=== PATIENT | male | born 1970 | race Two or more races ===

== ENCOUNTER 2025-03-09 12:31 | Emergency (ER) | payer MEDICARE, MEDICAID, SELFPAY ==
--- OUTSIDE RECORDS SUMMARY | 2025-03-02 06:16 | XMS_ITS | Encounter Summary ---
Author Organization [facility] Address [address] [place] [address] Care Team Providers Care Hot Mill Worker Name Role Phone Krysten Martins MD Primary Care Provider [phone] Reason for Visit * Reason Comments Psychiatric Evaluation Hyperglycemia Encounter Details Date Type Department Care Team (Late st Contact Info) Description 03/02/2025 6:16 AM EDT - 03/05/2025 3:10 PM EDT Emergency [facility] Emergency [address] [place] [id number] Jeff Dior MD [address] [place] [id number] Demetrius Cochran MD [address] [place] [id number] Pilar Pretty MD [address] [place] [id number] Raj Parham MD [address] [place] [id number] Ada Escoto DO [address] [place] [address] Lulu Perez MD [address] [place] [id number] Discharge Disposition: Psychiatric Hospital Social History Tobacco Use Types Packs/Day Years Used Date Smoking Tobacco: Every Day Smokeless Tobacco: Never Alcohol Use Standard Drinks/Week Comments Yes 0 (1 standard drink = 0.6 oz pur e alcohol) 10+ beers per day Food Risk Answer Date Recorded Within the past 12 months we worried whether our food would run out before we got money to buy more. Not asked 01/17/2025 Within the past 12 months th e food we bought just didn't last and we didn't have money to get more. Not asked 01/17/2025 Interpersonal Safety Answer Date Record ed Physical Abuse 01/15/2025 Verbal Abuse 01/15/2025 Sex and Gender Information Value Date Recorded Sex Assigned at Not on file Legal Sex Male 11:07 AM EDT Gender Identity Not on file Sexual Orientation Not on file documented as of this encounter Last Filed Vital Signs Vital Sign Reading Time Taken Comments Blood Pressure 108/65 03/05/2025 12:11 PM EDT Pulse 60 03/05/2025 12:11 PM EDT Temperature 36.5 C (97.7 F) 03/04/2025 9:45 PM EDT Respiratory Rate 18 03/05/2025 12:11 PM EDT Oxygen Saturation 100% 03/05/2025 12:11 PM EDT Inhaled Oxygen Concentration - - Weight 59 kg (130 lb) 03/02/2025 6:55 AM EDT Height 170.2 cm (5' 7 ) 03/02/2025 6:55 AM EDT Body Mass Index 20.36 03/02/2025 6:55 AM EDT documented in this encounter Functional Status * Are you deaf or do you have serious difficulty hearing? Answer Date of Assessment Author No 01/15/2025 5:56 AM EDT Lara Mendoza RN * Are you blind or do you have serious difficulty seeing, even when wearing glasses? Answer Date of Assessment Author No 01/15/2025 5:56 AM EDT Lara Mendoza RN * Do you have serious difficulty walking or climbing stairs? Answer Date of Assessment Author No 01/15/2025 5:56 AM EDT Lara Mendoza RN * Because of a physical, mental, or emotional condition, do you have serious difficulty doing errandsalone such as visiting the doctor? Answer Date of Assessment Author No 01/15/2025 5:56 AM EDT Lara Mendoza RN documented as of this encounter Mental Status * Because of a physical, mental, or emotional condition, do you have serious difficulty concentrating, remembering, or making decisions? (5 years old or older) Answer Entry Date Author No 01/15/2025 5:56 AM EDT Lara Mendoza RN documented in this encounter Medications at Time of Discharge albuterol HFA (ProAir HFA) 90 mcg/actuation inhaler Inhale 2 puffs by mouth every 4 (four) hours if needed for wheezing or shortness of breath. 01/16/2025 6 atorvastatin (LIPITOR) 40 mg tablet Take 1 tablet (40 mg total) by mouth 1 (one) time each day. Hold This med for next 7 days 90 tablet 2 01/27/2025 folic acid (FOLVITE) 1 mg tablet Take 1 tablet (1 mg total) by mouth 1 (one) time each day. 30 each 01/27/2025 6 magnesium oxide (MAG-OX) 400 mg (241.3 elemental magnesium) tablet Take 1 tablet (400 mg total) by mouth 1 (one) time each day. 10 tablet 01/28/2025 melatonin 3 mg tablet Take 3 tablets (9 mg total) by mouth at bedtime as needed for sleep. 90 tablet 01/27/2025 pen needle, diabetic 29 gauge x 1/2 needle Use to inject 1-4 times daily as directed. 100 each 01/27/2025 6 traZODone (DESYREL) 50 mg tablet Take 3 tablets (150 mg total) by mouth at bedtime as needed for sleep for up to 30 doses. 30 tablet 01/27/2025 documented as of this encounter Discharge Disposition Disposition Code Departure Means Destination [facility] documented in this encounter Progress Notes * Lulu Perez MD - 03/05/2025 8:22 AM EDT Maurilio Talley This patient's care was signed out to me by the offgoing provider. Please see her/his note for further details regarding initial presentation, history of present illness, physical exam, and medical decision making. At time of signout, the following was pending: inpatient psychiatric placement No acute needs during my shift. Patient's care was handed over to the oncoming provider. ED Course as of 03/05/25 0822 [place] Mar 02, 2025 0636 POCT Glucose, blood(!!) DKA workup as needed [LB] 1318 Patient was evaluated by the crisis team and deemed to be inpatient level of care. [AA] Mon Mar 03, 2025 0712 Patient received in signout pending bed search. [KD] 1808 Patient's care signed out to physician colleague pending bed search. [KD] ED Course User Index [AA] Jeff Dior MD [KD] Raj Parham MD [LB] JACQUI Coronado No orders to display Labs Reviewed COMPREHENSIVE METABOLIC PANEL - Abnormal Result Value Sodium 125 (*) Potassium 3.9 Chloride 86 (*) CO2 30 Anion Gap 9 Glucose 635 (*) BUN 12 Creatinine 1.11 eGFR 78 BUN/Creatinine Ratio 10.8 Calcium 9.5 AST (SGOT) 221 (*) ALT (SGPT) 291 (*) Alkaline Phosphatase 121 Total Protein 8.6 (*) Albumin 4.1 Total Bilirubin 1.3 MAGNESIUM - Abnormal Magnesium 1.8 (*) BETA HYDROXYBUTYRATE - Abnormal Beta-Hydroxybutyrate 8.3 (*) PHOSPHORUS - Abnormal Phosphorus 4.6 (*) VENOUS BLOOD GAS - Abnormal pH, Ryan 7.39 pCO2, Ryan 53 (*) pO2, Ryan 42 (*) HCO3, Venous 28.6 (*) O2 Sat, Ryna 80.3 Base Excess, Ryan 5.7 (*) VENOUS BLOOD GAS - Abnormal pH, Ryan 7.40 pCO2, Ryan 53 (*) pO2, Ryan 47 (*) HCO3, Venous 29.3 (*) O2 Sat, Ryan 80.5 Base Excess, Ryan 6.5 (*) VENOUS BLOOD GAS CO-OXIMETRY - Abnormal Carboxyhemoglobin 11.7 (*) Methemoglobin 0.0 (*) Oxyhemoglobin 70.9 (*) O2 Sat, Ryan 80.3 Total Hemoglobin Venous 13.7 DRUG ABUSE SCREEN 8A PANEL, URINE - Abnormal Amphetamine Screen, Ur Negative Barbiturate Screen, Ur Negative Benzodiazepine Screen, Ur Negative Cocaine Screen, Ur Positive (*) Opiate Screen, Ur Negative Cannabinoid (THC) Screen, Ur Negative Oxycodone Screen, Ur Negative Fentanyl, Ur Negative Narrative: Assay cutoffs: Amphetamines 1000 ng/mL Barbiturates 200 ng/mL Benzodiazepines 200 ng/mL Cocaine 300 ng/mL Fentanyl 1 ng/mL Opiates 300 ng/mL Oxycodone 100 ng/mL THC 50 ng/mL Semi-quantitative assay for screening purposes only. Unconfirmed screening result should not be used for non-medical purposes. *ALTERNATE METHOD CONFIRMATION DONE UPON REQUEST ONLY* ACETAMINOPHEN LEVEL - Abnormal Acetaminophen Level <2.0 (*) SALICYLATE LEVEL - Abnormal Salicylate Level <1.7 (*) URINALYSIS WITH REFLEX MICROSCOPIC AND CULTURE - Abnormal Specific [place] Urine 1.033 (*) pH, Urine 7.0 Leukocytes, Urine Negative Nitrite, Urine Negative Protein, Urine Negative Glucose, Urine >=1000 (*) Ketones, Urine Trace (*) Urobilinogen, Urine 2.0 (*) Bilirubin, Urine Negative Blood, Urine Negative POCT GLUCOSE, BLOOD - Abnormal Glucose POCT >600 (*) POCT Comment RN Notified POCT Comment 1 MD Notified POCT GLUCOSE, BLOOD - Abnormal Glucose POCT 398 (*) POCT GLUCOSE, BLOOD - Abnormal Glucose POCT 491 (*) POCT GLUCOSE, BLOOD - Abnormal Glucose POCT 260 (*) POCT GLUCOSE, BLOOD - Abnormal Glucose POCT 277 (*) POCT GLUCOSE, BLOOD - Abnormal Glucose POCT 316 (*) POCT GLUCOSE, BLOOD - Abnormal Glucose POCT 357 (*) POCT GLUCOSE, BLOOD - Abnormal Glucose POCT 378 (*) POCT GLUCOSE, BLOOD - Abnormal Glucose POCT 124 (*) POCT GLUCOSE, BLOOD - Abnormal Glucose POCT 391 (*) POCT GLUCOSE, BLOOD - Abnormal Glucose POCT 148 (*) POCT GLUCOSE, BLOOD - Abnormal Glucose POCT 340 (*) POCT GLUCOSE, BLOOD - Abnormal Glucose POCT 334 (*) LACTATE, WITH REFLEX - Normal LACTIC ACID 1.2 BUPRENORPHINE SCREEN, URINE - Normal Buprenorphine Screen Urine Negative Narrative: Assay cutoff 5 ng/mL Semi-quantitative assay for screening purposes only. Unconfirmed screening result should not be used for non-medical purposes. *ALTERNATE METHOD CONFIRMATION DONE UPON REQUEST ONLY* PHENCYCLIDINE, URINE - Normal PCP Scrn, Ur Negative METHADONE SCREEN, URINE - Normal Methadone Screen, Urine Negative ETHANOL - Normal Ethanol Level <3 CBC AND DIFFERENTIAL Narrative: The following orders were created for panel order CBC and differential. Procedure Abnormality Status --------- ------ CBC auto differential[[id number]] Final result Please view results for these tests on the individual orders. CBC WITH AUTO DIFFERENTIAL WBC 6.2 RBC 4.60 Hemoglobin 14.6 Hematocrit 42.7 MCV 93.6 MCH 32.0 MCHC 34.2 RDW 11.9 Platelets 200 MPV 10.4 NRBC 0.0 NRBC Absolute 0.00 Neutrophils Relative 46.8 Lymphocytes Relative 44.4 Monocytes Relative 7.3 Eosinophils Relative 0.5 Basophils Relative 0.8 Immature Granulocytes Relative 0.2 Neutrophils Absolute 2.90 Lymphocytes Absolute 2.75 Monocytes Absolute 0.45 Eosinophils Absolute 0.03 Basophils Absolute 0.05 Immature Granulocytes Absolute 0.01 URINALYSIS WITH REFLEX MICROSCOPIC AND CULTURE Narrative: The following orders were created for panel order Urinalysis with reflex microscopic and culture. Procedure Abnormality Status --------- ------ Urinalysis with reflex ...[[id number]] Abnormal Final result Booker urine culture tube[[id number]] Final result Please view results for these tests on the individual orders. MAGNESIUM Clinical Impression(s): Final diagnoses: None Data Unavailable Previous Medications ALBUTEROL HFA (PROAIR HFA) 90 MCG/ACTUATION INHALER Inhale 2 puffs by mouth every 4 (four) hours ifneeded for wheezing or shortness of breath. ATORVASTATIN (LIPITOR) 40 MG TABLET Take 1 tablet (40 mg total) by mouth 1 (one) time each day. Hold This med for next 7 days FOLIC ACID (FOLVITE) 1 MG TABLET Take 1 tablet (1 mg total) by mouth 1 (one) time each day. INSULIN GLARGINE (LANTUS) 100 UNIT/ML INJECTION Inject 40 Units under the skin 1 (one) time each day in the morning AND 30 Units at bedtime. MAGNESIUM OXIDE (MAG-OX) 400 MG (241.3 ELEMENTAL MAGNESIUM) TABLET Take 1 tablet (400 mg total) by mouth 1 (one) time each day. MELATONIN 3 MG TABLET Take 3 tablets (9 mg total) by mouth at bedtime as needed for sleep. PEN NEEDLE, DIABETIC 29 GAUGE X 1/2 NEEDLE Use to inject 1-4 times daily as directed. TRAZODONE (DESYREL) 50 MG TABLET Take 3 tablets (150 mg total) by mouth at bedtime as needed for sleep for up to 30 doses. ED Medication Administration from 03/02/2025 0612 to 03/05/2025 0822 Date/Time Order Dose Route Action Action by 03/02/2025 0800 EDT sodium chloride 0.9 % bolus 1,000 mL 1,000 mL intravenous New Bag Cinthia, C 03/02/2025 0830 EDT sodium chloride 0.9 % bolus 1,000 mL 0 mL intravenous Stopped Cinthia, C 03/02/2025 1004 EDT insulin regular (HumuLIN R) injection 10 Units 10 Units subcutaneous Given Cinthia, C 03/02/2025 1004 EDT sodium chloride 0.9 % bolus 1,000 mL 1,000 mL intravenous New Bag Cinthia, C 03/02/2025 1131 EDT sodium chloride 0.9 % bolus 1,000 mL 0 mL intravenous Stopped [place], S 03/02/2025 1004 EDT magnesium sulfate 2 gram/50 mL (4 %) IVPB 2 g 2 g intravenous New Bag Cinthia,C 03/02/2025 1144 EDT magnesium sulfate 2 gram/50 mL (4 %) IVPB 2 g 0 g intravenous Stopped [place], S 03/02/2025 2103 EDT ARIPiprazole (ABILIFY) tablet 7.5 mg 7.5 mg oral Given Arvind, L 03/03/2025 2042 EDT ARIPiprazole (ABILIFY) tablet 7.5 mg 7.5 mg oral Given Arvind, L 03/04/2025 2126 EDT ARIPiprazole (ABILIFY) tablet 7.5 mg 7.5 mg oral Given Cournoyer, S 03/02/2025 1715 EDT atorvastatin (LIPITOR) tablet 40 mg 40 mg oral Given Darell, K 03/03/2025 0911 EDT atorvastatin (LIPITOR) tablet 40 mg 40 mg oral Given Asad Sobral, H 03/04/2025 0854 EDT atorvastatin (LIPITOR) tablet 40 mg 40 mg oral Given Saykin, S 03/02/2025 1715 EDT thiamine (VITAMIN B-1) tablet 100 mg 100 mg oral Given Darell, K 03/03/2025 0911 EDT thiamine (VITAMIN B-1) tablet 100 mg 100 mg oral Given Asad Sobral, H 03/04/2025 0854 EDT thiamine (VITAMIN B-1) tablet 100 mg 100 mg oral Given Saykin, S 03/03/20252049 EDT traZODone (DESYREL) tablet 150 mg 150 mg oral Given Arvind, L 03/04/20252149 EDT traZODone (DESYREL) tablet 150 mg 150 mg oral Given Cournoyer, S 03/02/20252113 EDT insulin glargine (LANTUS) injection 40 Units 40 Units subcutaneous Given Arvind, L 03/03/20252041 EDT insulin glargine (LANTUS) injection 40 Units 40 Units subcutaneous Given Arvind, L 03/04/20252136 EDT insulin glargine (LANTUS) injection 40 Units 40 Units subcutaneous Given Cournoyer, S 03/02/2025 1716 EDT insulin lispro injection 2-12 Units 6 Units subcutaneous Given Darell, K 03/03/2025 0911 EDT insulin lispro injection 2-12 Units 10 Units subcutaneous Given Asad Sobral, H 03/03/2025 1316 EDT insulin lispro injection 2-12 Units 10 Units subcutaneous Given Asad Sobral, H 03/03/2025 1716 EDT insulin lispro injection 2-12 Units -- subcutaneous Not Given Arvind, L 03/04/2025 0854 EDT insulin lispro injection 2-12 Units 10 Units subcutaneous Given Saykin, S 03/04/2025 1212 EDT insulin lispro injection 2-12 Units -- subcutaneous Not Given Saykin, S 03/04/2025 1759 EDT insulin lispro injection 2-12 Units 8 Units subcutaneous Given Saykin, S * Milli Olivarez NP - 03/03/2025 2:06 PM EDT Psychiatry Initial Intake Maurilio Talley,is a 54-year-old male with a history of bipolar disorder, alcohol use disorder, cirrhosis, type 2 diabetes presents to the ED with SI. Patient states that he lost significant amount of money and would like to kill himself. He had plans of slashing his wrist. He did not want to give any further information. Denies chest pain or shortness of breath. On arrival to ED Maurilio reported I am not good, my mind is confused . He stated I am suicidal because no one loves me . He stated I was going to cut my wrist with a knife, like I have done before . He stated sometimes I feel like hurting random people and just punching them in the face . He stated the voices tell me to kill myself . He stated and this is how I am feeling right now . Subjective 03/03/2025 Same thing, I am hearing the voices telling me to kill myself, to hit people. I am not sleeping HPI: Mr Talley reports having thoughts of harming himself and others Upon discharge from [facility] a few weeksago patient had reported a decrease in AH. Patient states that he went to the pharmacy to get the medication it was not ready so I said to just keep it never mind . Seen by CL team January 2025 Record Review: moderate Duration: 30 minutes Current Medications: Scheduled Meds: ARIPiprazole, 7.5 mg, oral, Nightly atorvastatin, 40 mg, oral, Daily insulin glargine, 40 Units, subcutaneous, Nightly insulin lispro, 2-12 Units, subcutaneous, TID AC thiamine, 100 mg, oral, Daily Continuous Infusions: PRN Meds: PRN medications: dextrose 50%, dextrose 50%, dextrose, dextrose, glucagon injection, melatonin, traZODone Stressors: unstable housing, medical co morbidities Past Psychiatric History: Outpatient Mental Health Treatment: None reported Previous or Current Psychological Diagnosis: Bipolar D/O, Alcohol use and Cocaine use Prior Psychiatric Hospitalizations/Residential Treatment Facilities: Maurilio is unknown to [facility]. He reported a history of 3 suicide attempts by cutting and shooting himself in the foot. He stated he was medically admitted and then transferred to a psychiatric hospital in [place]. Other Comments Regarding Mental Health Treatment History: None reported Mental Health Concerns in Family: None reported Substance Abuse History: Recreational drugs: cocaine 2-3 x a week Use of alcohol: daily- amount varies Use of caffeine: denies use Tobacco use: no Legal consequences of chemical use: yes Patient feels he ought to cut down on drinking and/or drug use: yes Patient has been annoyed by others criticizing his drinking or drug use: yes Psychiatric Review Of Systems: Sleep: yes Need the trazodone Appetite changes: yes Weight changes: no Energy: yes Interest/pleasure/anhedonia: yes Somatic symptoms: yes Anxiety/panic: no Guilty/hopeless: yes Self-injurious behavior/risky behavior: demies Any drugs: yes Alcohol: yes Mental Status Exam: General Observations Appearance and Build: disheveled and unkempt Demeanor: Mistrustful Eye Contact: Avoidant Activity: Average Speech: soft Behavior: withdrawn Mood: depressed Affect: flat Thought Process: poor concentration Thought Content: Delusions: none reported Other: none reported Self Abuse: suicidal (assess lethality if present): reports suicidal ideation with plan to overdose Aggressive: none reported Cognition: Impairment of: orientation and attention/concentration Intelligence Estimate: average highest grade 3rd Sensorium/Orientation: person, place, time/date, and situation Perception: Hallucinations: auditory Other: none reported Insight/Judgment: fair Psychomotor agitation: none Suicidal intentions: yes - Suicidal plan: yes - to overdose Assessment/Plan Diagnosis: Patient Active Problem List Diagnosis Transaminitis Suicidal ideation Elevated LFTs Noncompliance with medication regimen Type 2 diabetes mellitus with hyperglycemia, with long-term current use of insulin ([facility] V24, [facility] V28) Objective: Seclusion/Restraint in last 24 hours: No Blood pressure 108/65, pulse 68, temperature 36.4 ??C (97.6 ??F), temperature source Oral, resp. rate 16, height 1.702 m (67 ), weight 59 kg (130 lb), SpO2 98%. Lab Results: Results for orders placed or performed during the hospital encounter of 03/02/25 POCT Glucose, blood Collection Time: 03/02/25 6:25 AM Result Value Ref Range Glucose POCT >600 (HH) 70 - 100 mg/dL POCT Comment RN Notified POCT Comment 1 MD Notified Comprehensive Metabolic Panel (CMP) Collection Time: 03/02/25 7:08 AM Result Value Ref Range Sodium 125 (L) 133 - 145 mmol/L Potassium 3.9 3.5 - 5.5 mmol/L Chloride 86 (L) 96 - 110 mmol/L CO2 30 21 - 32 mmol/L Anion Gap 9 3 - 11 Glucose 635 (HH) 70 - 100 mg/dL BUN 12 5 - 25 mg/dL Creatinine 1.11 0.70 - 1.30 mg/dL eGFR 78 >=60 mL/min/1.73m2 BUN/Creatinine Ratio 10.8 Calcium 9.5 8.5 - 10.5 mg/dL AST (SGOT) 221 (H) 10 - 42 unit/L ALT (SGPT) 291 (H) 10 - 60 unit/L Alkaline Phosphatase 121 42 - 121 unit/L Total Protein 8.6 (H) 6.0 - 8.0 g/dL Albumin 4.1 3.2 - 5.0 g/dL Total Bilirubin 1.3 0.0 - 1.4 mg/dL Magnesium Collection Time: 03/02/25 7:08 AM Result Value Ref Range Magnesium 1.8 (L) 1.9 - 2.6 mg/dL Beta hydroxybutyrate Collection Time: 03/02/25 7:08 AM Result Value Ref Range Beta-Hydroxybutyrate 8.3 (H) 0.2 - 2.8 mg/dL Phosphorus Collection Time: 03/02/25 7:08 AM Result Value Ref Range Phosphorus 4.6 (H) 2.5 - 4.5 mg/dL Venous blood gas Collection Time: 03/02/25 7:08 AM Result Value Ref Range pH, Ryan 7.39 7.32 - 7.42 pH pCO2, Ryan 53 (H) 41 - 51 mmHg pO2, Ryan 42 (H) 25 - 40 mmHg HCO3, Venous 28.6 (H) 22.0 - 26.0 mmol/L O2 Sat, Ryan 80.3 % Base Excess, Ryan 5.7 (H) -2.0 - 2.0 mmol/L Venous blood gas Collection Time: 03/02/25 7:08 AM Result Value Ref Range pH, Ryan 7.40 7.32 - 7.42 pH pCO2, Ryan 53 (H) 41 - 51 mmHg pO2, Ryan 47 (H) 25 - 40 mmHg HCO3, Venous 29.3 (H) 22.0 - 26.0 mmol/L O2 Sat, Ryan 80.5 % Base Excess, Ryan 6.5 (H) -2.0 - 2.0 mmol/L Lactate, with reflex Collection Time: 03/02/25 7:08 AM Result Value Ref Range LACTIC ACID 1.2 0.4 - 2.0 mmol/L Venous blood gas co-oximetry Collection Time: 03/02/25 7:08 AM Result Value Ref Range Carboxyhemoglobin 11.7 (HH) 0.0 - 3.0 % Methemoglobin 0.0 (L) 0.2 - 0.5 % Oxyhemoglobin 70.9 (H) 40 - 70 % O2 Sat, Ryan 80.3 % Total Hemoglobin Venous 13.7 12.0 - 18.0 g/dL CBC auto differential Collection Time: 03/02/25 7:08 AM Result Value Ref Range WBC 6.2 4.8 - 10.8 K/mcL RBC 4.60 4.50 - 5.50 M/mcL Hemoglobin 14.6 13.5 - 17.5 g/dL Hematocrit 42.7 42.0 - 54.0 % MCV 93.6 79.0 - 98.0 FL MCH 32.0 27.0 - 32.0 pcg MCHC 34.2 32.0 - 37.0 g/dL RDW 11.9 11.0 - 15.0 % Platelets 200 130 - 400 K/mcL MPV 10.4 7.0 - 11.0 FL NRBC 0.0 <1.0 % NRBC Absolute 0.00 <0.10 K/mcL Neutrophils Relative 46.8 % Lymphocytes Relative 44.4 % Monocytes Relative 7.3 % Eosinophils Relative 0.5 % Basophils Relative 0.8 % Immature Granulocytes Relative 0.2 % Neutrophils Absolute 2.90 1.50 - 7.00 K/mcL Lymphocytes Absolute 2.75 1.00 - 5.00 K/mcL Monocytes Absolute 0.45 0.20 - 1.00 K/mcL Eosinophils Absolute 0.03 0.00 - 0.50 K/mcL Basophils Absolute 0.05 0.00 - 0.20 K/mcL Immature Granulocytes Absolute 0.01 0.00 - 0.03 K/mcL Acetaminophen level Collection Time: 03/02/25 7:08 AM Result Value Ref Range Acetaminophen Level <2.0 (L) 10.0 - 30.0 mcg/mL Ethanol Collection Time: 03/02/25 7:08 AM Result Value Ref Range Ethanol Level <3 0 - 10 mg/dL Salicylate level Collection Time: 03/02/25 7:08 AM Result Value Ref Range Salicylate Level <1.7 (L) 2.0 - 29.0 mg/dL Drug abuse screen 8a panel, urine Collection Time: 03/02/25 7:09 AM Result Value Ref Range Amphetamine Screen, Ur Negative Negative Barbiturate Screen, Ur Negative Negative Benzodiazepine Screen, Ur Negative Negative Cocaine Screen, Ur Positive (A) Negative Opiate Screen, Ur Negative Negative Cannabinoid (THC) Screen, Ur Negative Negative Oxycodone Screen, Ur Negative Negative Fentanyl, Ur Negative Negative Buprenorphine screen, urine Collection Time: 03/02/25 7:09 AM Result Value Ref Range Buprenorphine Screen Urine Negative Negative Phencyclidine, urine Collection Time: 03/02/25 7:09 AM Result Value Ref Range PCP Scrn, Ur Negative Negative Methadone, urine Collection Time: 03/02/25 7:09 AM Result Value Ref Range Methadone Screen, Urine Negative Negative Electrocardiogram, 12 lead Collection Time: 03/02/25 8:08 AM Result Value Ref Range Ventricular Rate ECG 80 BPM Atrial Rate 80 BPM P-R Interval 158 ms QRS Duration 70 ms Q-T Interval 404 ms QTc 465 ms P Wave [place] 66 degrees R [place] 22 degrees T [place] 39 degrees ECG Interpretation Normal sinus rhythm Borderline QT interval Abnormal ECG When compared with ECG of 21-JAN-2025 09:52, No significant change was found Confirmed by Stephanie SPRING YUFENG ([id number]) on 03/02/2025 12:51:24 PM POCT Glucose, blood Collection Time: 03/02/25 8:54 AM Result Value Ref Range Glucose POCT 398 (H) 70 - 100 mg/dL POCT Glucose, blood Collection Time: 03/02/25 11:11 AM Result Value Ref Range Glucose POCT 491 (HH) 70 - 100 mg/dL Urinalysis with reflex microscopic and culture Collection Time: 03/02/25 11:41 AM Result Value Ref Range Specific [place] Urine 1.033 (H) 1.003 - 1.030 pH, Urine 7.0 5.0 - 8.0 pH Leukocytes, Urine Negative Negative Nitrite, Urine Negative Negative Protein, Urine Negative <=Trace mg/dL Glucose, Urine >=1000 (A) Negative mg/dL Ketones, Urine Trace (A) Negative mg/dL Urobilinogen, Urine 2.0 (A) 0.2 - 1.0 mg/dL Bilirubin, Urine Negative Negative Blood, Urine Negative Negative Booker urine culture tube Collection Time: 03/02/25 11:41 AM Result Value Ref Range Extra Tube Hold for add-ons. POCT Glucose, blood Collection Time: 03/02/25 2:02 PM Result Value Ref Range Glucose POCT 260 (H) 70 - 100 mg/dL POCT Glucose, blood Collection Time: 03/02/25 5:07 PM Result Value Ref Range Glucose POCT 277 (H) 70 - 100 mg/dL POCT Glucose, blood Collection Time: 03/02/25 8:31 PM Result Value Ref Range Glucose POCT 316 (H) 70 - 100 mg/dL POCT Glucose, blood Collection Time: 03/03/25 9:07 AM Result Value Ref Range Glucose POCT 357 (H) 70 - 100 mg/dL POCT Glucose, blood Collection Time: 03/03/25 12:45 PM Result Value Ref Range Glucose POCT 378 (H) 70 - 100 mg/dL Medications: Current Facility-Administered Medications Medication Dose Route Frequency Provider Last Rate Last Admin ARIPiprazole (ABILIFY) tablet 7.5 mg 7.5 mg oral Nightly Jeff Gallagher MD 7.5 mg at 03/02/252102 atorvastatin (LIPITOR) tablet 40 mg 40 mg oral Daily Jeff Dior MD 40 mg at dextrose (D50W) 50% injection 12.5 g 12.5 g intravenous q15 min PRN Jeff Dior MD dextrose (D50W) 50% injection 25 g 25 g intravenous q15 min PRN Jeff Gallagher MD dextrose 15 gram/60 mL oral solution 15 g 15 g oral q15 min PRN Jeff Gallagher MD dextrose 15 gram/60 mL oral solution 30 g 30 g oral q15 min PRN Jeff Gallagher MD glucagon HCL injection 1 mg 1 mg intramuscular Once PRN Jeff Gallagher MD insulin glargine (LANTUS) injection 40 Units 40 Units subcutaneous Nightly Jeff Dior MD 40 Units at 03/02/252113 insulin lispro injection 2-12 Units 2-12 Units subcutaneous TID AC Jeff Dior MD 10 Units at 03/03/25 1316 melatonin tablet 9 mg 9 mg oral Nightly PRN Jeff Dior MD thiamine (VITAMIN B-1) tablet 100 mg 100 mg oral Daily Jeff Dior MD 100 mg at 03/03/25 0911 traZODone (DESYREL) tablet 150 mg 150 mg oral Nightly PRN Jeff Gallagher MD Current Outpatient Medications Medication Sig Dispense Refill albuterol HFA (ProAir HFA) 90 mcg/actuation inhaler Inhale 2 puffs by mouth every 4 (four) hours ifneeded for wheezing or shortness of breath. atorvastatin (LIPITOR) 40 mg tablet Take 1 tablet (40 mg total) by mouth 1 (one) time each day. Hold This med for next 7 days 90 tablet 2 folic acid (FOLVITE) 1 mg tablet Take 1 tablet (1 mg total) by mouth 1 (one) time each day. 30 each0 insulin glargine (LANTUS) 100 unit/mL injection Inject 40 Units under the skin 1 (one) time each day in the morning AND 30 Units at bedtime. 30 mL 0 magnesium oxide (MAG-OX) 400 mg (241.3 elemental magnesium) tablet Take 1 tablet (400 mg total) by mouth 1 (one) time each day. 10 tablet 0 melatonin 3 mg tablet Take 3 tablets (9 mg total) by mouth at bedtime as needed for sleep. 90 tablet 0 pen needle, diabetic 29 gauge x 1/2 needle Use to inject 1-4 times daily as directed. 100 each 0 traZODone (DESYREL) 50 mg tablet Take 3 tablets (150 mg total) by mouth at bedtime as needed for sleep for up to 30 doses. 30 tablet 0 Diagnosis/Assessment/Plan: Depression with psychotic features Cocaine use disorder Alcohol use Suicidal ideation Mr Talley reports feeling depressed, with suicidal ideations. Reports recurring AH that tell him tokill himself and to hit people States that he has not been taking medications since last hospitalized in January. 1) Continue aripiprazole 7.5 mg daily for AH and mood stabilization 2) Continue trazodone 150 mg po at bedtime for sleep. 3) Collaborate with team for inpatient psychiatric hospitalization for patient safety , mood stabilization and medication management Milli Olivaerz NP * Demetrius Cochran MD - 03/03/2025 1:38 AM EDT Pt signed out to me by Dr. Dior. Briefly, the patient is a 54-year-old female who is being evaluated for complaints of suicidal ideation. The patient has been evaluated by the crisis team and is deemed to be an inpatient level of care. There are no acute events to my shift. I performed a substantiative portion of the medical decision making. Pt signed out to Dr. Pretty. * Tata Bueno RN - 03/02/2025 6:18 AM EDT Pt brought in by ems from gas station with c/o si due to lost money gambling , no plan. pt found crying at gas station with pd. Per ems , admits + etoh, pt also has hx diabetes , has not been on meds for months, poc machine read high * Jeff Dior MD - 03/02/2025 6:12 AM EDT HPI Chief Complaint Patient presents with ??? Psychiatric Evaluation ??? Hyperglycemia HPI 54-year-old male with a history of bipolar disorder, alcohol use disorder, cirrhosis, type 2 diabetes presents to the ED with SI. Patient states that he lost significant amount of money and would like to kill himself. He had plans of slashing his wrist. He did not want to give any further information. Denies chest pain or shortness of breath. [place] Coma Scale Score: 15 Patient History Past Medical History: Diagnosis Date ??? Alcohol use disorder 2019 per emr ??? Bipolar disorder (CMS/HCC V24, CMS/HCC V28) DX:Bipolar disorder (HCC) ??? Cirrhosis (CMS/HCC V24, CMS/HCC V28) 2019 per EMR ??? COPD (chronic obstructive pulmonary disease) (CMS/HCC V24, CMS/HCC V28) ??? History of suicide attempt DX:History of suicide attempt ??? Mixed hyperlipidemia DX:Mixed hyperlipidemia ??? Other psychoactive substance dependence, uncomplicated (CMS/HCC V24, CMS/HCC V28) DX:Other psychoactive substance dependence, uncomplicated (HCC) ??? T2DM (type 2 diabetes mellitus) (CMS/HCC V24, CMS/HCC V28) DX:T2DM (type 2 diabetes mellitus) (HCC) ??? Viral hepatitis C without hepatic coma DX:Viral hepatitis C without hepatic coma Past Surgical History: Procedure Laterality Date ??? ANKLE SURGERY ??? HERNIA REPAIR Family History Problem Relation Name Age of Onset ??? Diabetes Other Social History Tobacco Use ??? Smoking status: Every Day ??? Smokeless tobacco: Never Substance Use Topics ??? Alcohol use: Yes Comment: 10+ beers per day ??? Drug use: Yes Types: Crack cocaine Review of Systems Review of Systems All other systems reviewed and are negative. Physical Exam ED Triage Vitals [03/02/25 0627] Temp Heart Rate Resp BP 37 ??C (98.6 ??F) 81 20 111/72 SpO2 Temp Source Heart Rate Source Patient Position 100 % Oral Monitor Sitting BP Location FiO2 (%) Left arm -- Physical Exam Constitutional: Appearance: Normal appearance. HENT: Head: Normocephalic and atraumatic. Eyes: Extraocular Movements: Extraocular movements intact. Conjunctiva/sclera: Conjunctivae normal. Pupils: Pupils are equal, round, and reactive to light. Cardiovascular: Rate and Rhythm: Normal rate and regular rhythm. Heart sounds: Normal heart sounds. Pulmonary: Effort: Pulmonary effort is normal. Breath sounds: Normal breath sounds. Abdominal: General: Abdomen is flat. There is no distension. Palpations: Abdomen is soft. Tenderness: There is no abdominal tenderness. Musculoskeletal: General: Normal range of motion. Cervical back: Normal range of motion. Skin: General: Skin is warm and dry. Capillary Refill: Capillary refill takes less than 2 seconds. Neurological: General: No focal deficit present. Mental Status: He is alert and oriented to person, place, and time. Psychiatric: Mood and Affect: Mood normal. Behavior: Behavior normal. ED Course & MDM ED Course as of 03/05/25 1832 Sun Mar 02, 2025 0636 POCT Glucose, blood(!!) DKA workup as needed [LB] 1318 Patient was evaluated by the crisis team and deemed to be inpatient level of care. [AA] Mon Mar 03, 2025 0712 Patient received in signout pending bed search. [KD] 1808 Patient's care signed out to physician colleague pending bed search. [KD] ED Course User Index [AA] Jeff Dior MD [KD] Raj Parham MD [LB] JACQUI Coronado Medical Decision Making 54-year-old male with a history of bipolar disorder, alcohol use disorder, cirrhosis, type 2 diabetes presents to the ED with SI. On exam, he is alert and not in acute distress. Patient does not wantto give any further information that I do not want him to kill himself. He initially stated that hewould like to slash his wrist to kill himself. Patient initial CBG was greater than 600. He was started on labs for DKA. Plan to start him on IV fluids and reevaluate. On reevaluation, patient continues to be stable and not in acute distress. Per his labs, he is not acidotic and has no anion gap. Patient is clinically not in DKA. His repeat CBG after liter of fluids was 398. Will give patient dose of 10 units subcu insulin, IV fluids and reevaluate. Procedures Jeff Dior MD 03/02/25 0909 Jeff Dior MD 03/03/25 0850 Jeff Dior MD 03/05/25 1832 * Pilar Pretty MD - 03/02/2025 6:12 AM EDT Transfer of care note (signed out from Dr. Cochran) Patient presenting with concern for self-harm. Currently on section 12 involuntary. Pending inpatient psychiatric placement. Signed out to oncoming physician. Pilar Pretty MD 03/03/25 0151 * Raj Parham MD - 03/02/2025 6:12 AM EDT ED Course as of 03/03/25 1808 Sun Mar 02, 2025 0636 POCT Glucose, blood(!!) DKA workup as needed [LB] 1318 Patient was evaluated by the crisis team and deemed to be inpatient level of care. [AA] MonMar 03, 2025 0712 Patient received in signout pending bed search. [KD] 1808 Patient's care signed out to physician colleague pending bed search. [KD] ED Course User Index [AA] Jeff Dior MD [KD] Raj Parham MD [LB] JACQUI Coronado MD 03/03/25 180 documented in this encounter Consult Notes * Rachel Jean - 03/05/2025 12:02 PM EDT Maurilio is accepted today to [facility] for 2:00 pm. Accepting doctor Diallo Becerra * Steve Robin - 03/04/2025 10:18 AM EDT Images from the original note were not included. Behavioral Health Services - Mental Status Update Important times Time assessment started: 09:20 Time of disposition: 09:50 Location: Emergency Room (ER) Consulted case with: Jazz Cast LCSW Insurance information: Insurance: Medicare A&B Verified by: [employer] - Rachel Jean Reason for Consultation / Presenting Problem: Maurilio Talley is being seen today for a 24 hour re-evaluation due to their state wide bed search being exhausted. S utilized hospital spanish medical interpreter to complete assessment. Patient reported that he is still feeling depressed and like he wants to . He denied having a plan. When asked about HI, patient reported that he is not currently having HI but wa s able to corroborate previous documentation of him sometimes wanting to punch random people. Patient stated when he feels that way, it's because he wants to be alone and does not want those around him to be there. He also denied current AH/VH but reported he was having them yesterday. Collaterals, contact information, and engagement level: Therapist: None reported Psychiatrist: None reported PCP: Unknown Family: None reported Other: None reported Mental Status Speech: WNL and Slowed Eye Contact: Avoidant Motor Activity: Slowed Mood: Depressed Affect: Flat Sleep: Poor Appetite: Fair Memory: WNL Attention / Concentration: Mild Impairment Behavior: Cooperative and Calm Hallucinations: None Delusions: None Thought Content: WNL SI: Presence HI: Denied Thought Process: WNL Orientation Impairment: None Insight: Poor Judgment: Poor Impulse Control: Poor Medications: Scheduled Meds: ARIPiprazole, 7.5 mg, oral, Nightly atorvastatin, 40 mg, oral, Daily insulin glargine, 40 Units, subcutaneous, Nightly insulin lispro, 2-12 Units, subcutaneous, TID AC thiamine, 100 mg, oral, Daily Continuous Infusions: PRN Meds: PRN medications: dextrose 50%, dextrose 50%, dextrose, dextrose, glucagon injection, melatonin, traZODone Risk Assessment: Self-Harm: None Suicidal Behavior: Current and Ideation Homicidal Behavior: Past and Ideation Physical Assault: None Physical Aggression: None Property Damage: None Verbal Aggression: None Family history of suicide: None reported Protective Factors: Patient is able to advocate for himself. Patient is help- seeking. Patient is able to access his needs. Risk Factors: Patient has a history of non-compliance with medication and treatment. Patient has a history of unstable housing. Patient continues to use substances. Suicide Risk: Based on patient's history and current presentation, their level of risk for intentional lethal harm is considered High Safety Plan Completed: no No safety plan completed due to patient being a bed search. Interventions: Risk/crisis assessment, active listening, empathetic listening Response to interventions: Patient was cooperative, engaged, and aligned with speaking with S. DSM-5TR Diagnosis: F31.89 Other specified Bipolar and related D/O F10.20 Alcohol use, severe F14.20 Cocaine use, moderate Plan: Based on the information above, patient would continue to benefit from an involuntary inpatient psychiatric admission for safety and containment, mood stabilization, medication evaluation, and coordination with outpatient and community supports to develop long-term community safety plan. Recommendations were discussed with requesting provider. It was a pleasure to assist Maurilioherbert Whyteos here at [facility]. This report is written and finalized by: Steve Robin Behavioral Health Specialist [facility] (Tel): [phone] / : [phone] * Rachel Jean - 03/03/2025 12:44 PM EDT Images from the original note were not included. Behavioral Health Services - Mental Status Update Important times Time assessment started: 03/03/25 12:00 pm Time of disposition: 03/03/25 12:30 pm Location: [facility] Consulted case with: Jazz Cast LCSW Insurance information: Insurance: Medicare A&B Verified by: Rachel Reason for Consultation / Presenting Problem: Maurilio Talley is being seen today for a 24 hour re-evaluation due to their state wide bed search being exhausted. He is a 54-year-old male with a historyof bipolar disorder, alcohol use disorder, cirrhosis, type 2 diabetes presents to the ED with SI. Patient states that he lost significant amount of money and would like to kill himself. He had plans of slashing his wrist. He did not want to give any further information. Denies chest pain or shortness of breath. translator/interpreter was used. He was initially seen on 03/02/25 by the crisis team and deemed inpatient psychiatric bed search. He was seen today for a mental status update. Maurilio reported I am not good, my mind is confused . He stated I am suicidal because no one lovesme . He stated I was going to cut my wrist with a knife, like I have done before . He stated sometimes I feel like hurting random people and just punching them in the face . He stated the voices tell me to kill myself . He stated and this is how I am feeling right now . Collaterals, contact information, and engagement level: Therapist: None reported Psychiatrist: None reported PCP: Unknown Family: None reported Mental Status Speech: WNL Eye Contact: WNL and Intermittent Motor Activity: WNL and Slowed Mood: Anxious and Depressed Affect: Flat Sleep: Fair Appetite: WNL Memory: Mild Impairment Attention / Concentration: Mild Impairment Behavior: Cooperative Hallucinations: Auditory Delusions: None Thought Content: Suspicious SI: Presence HI: Presense Thought Process: Helpless and hopeless Orientation Impairment: Place and Person Insight: Poor Judgment: Poor Impulse Control: History of impulsive behaviors Medications: Scheduled Meds: ARIPiprazole, 7.5 mg, oral, Nightly atorvastatin, 40 mg, oral, Daily insulin glargine, 40 Units, subcutaneous, Nightly insulin lispro, 2-12 Units, subcutaneous, TID AC thiamine, 100 mg, oral, Daily Continuous Infusions: PRN Meds: PRN medications: dextrose 50%, dextrose 50%, dextrose, dextrose, glucagon injection, melatonin, traZODone Risk Assessment: Self-Harm: None Suicidal Behavior: Plan Homicidal Behavior: Plan Physical Assault: None Physical Aggression: None Property Damage: None Verbal Aggression: None Family history of suicide: None reported Protective Factors: Is able to access his needs Risk Factors: Non compliant with treatment or medications Substance use Suicide Risk: Based on patient's history and current presentation, their level of risk for intentional lethal harm is considered High Safety Plan Completed: yes Going inpatient for safety Interventions: Used active listening Response to interventions: Abdirahman was engaged in the conversation. DSM-5TR Diagnosis: F31.89 Other specified Bipolar and related D/O F10.20 Alcohol use, severe F14.20 Cocaine use, moderate Plan: Maurilio is at high risk for suicidal plan reporting saying he was going to cut his wrist. He is at low/moderate risk saying he wanted to punch any random person. He would benefit from inpatient level of care for safety, stabilization and medication evaluation. He is on a section 12 involuntary. Recommendations were discussed with requesting provider. It was a pleasure to assist Maurilio Talley here at [facility]. This report is written and finalized by: Rachel Jean MS Behavioral Health Specialist [facility] (Tel): [phone] / : [phone] * Rachel Jean - 03/02/2025 12:59 PM EDTAssociated Order(s): IP CONSULT TO WAREHOUSE ASSOCIATE Images from the original note were not included. Behavioral Health Services - Crisis Assessment Important times Time of arrival: 9/14/25 6:16 Time of referral: 03/02/25 6:30 am Time of readiness: 03/02/15 9:00 am Time assessment started: 03/02/25 12:00 pm Time of disposition: 03/02/25 1:00 pm Location: [facility] Consulted case with: Jazz Cast LCSW Insurance information: Insurance: Medicare A&B Verified by: Rachel Reason for Consultation / Presenting Problem: Maurilio Talley is being seen today for a consultive service at the request of Jeff Dior* to assess risk and identify appropriate level of care. 54-year-old male with a history of bipolar disorder, alcohol use disorder, cirrhosis, type 2 diabetes presents to the ED with SI. Patient states that he lost significant amount of money and wouldlike to kill himself. He had plans of slashing his wrist. He did not want to give any further information. Denies chest pain or shortness of breath. Maurilio reported I want to kill myself . He stated so hurry up with the questions cause I want to eat . He stated I am Bipolar and I tried to kill myself 3 times . He stated I have a plan of how Iwill kill myself and it is a secret . Maurilio stated now get the hell out I am done talking . He rolled over and closed his eyes. History of Present Illness: Maurilio is a 54 y.o. male with Chief Complaint Patient presents with Psychiatric Evaluation Hyperglycemia Social/Educational History: Guardian - if Yes, provide contact information: Self Status: N/A State Agency Involvement: None reported Price's Order: N/A Marital Status: Single Alternative Placement Details: N/A Living Situation for patient: Homeless Household Members/Age: None Friendships/Family/Social Peer Support/Relationships: Maurilio reported he has a few people who are supportive. Highest level of education: 3ed grade Comments (Include Learning Needs): None reported Occupation: Unemployed Employment/Extracurricular Activities/Hobbies: Unemployed Limitations of Daily Activities: None reported Strengths/Supports: Maurilio is able to express his needs. Collaterals, contact information, and engagement level: Therapist: None reported Psychiatrist: None reported PCP: Unknown Family: None reported Mental Status Speech: Pressured and loud Eye Contact: Intense Motor Activity: WNL Mood: Anxious and irritable Affect: Flat Sleep: Poor Appetite: WNL Memory: Mild Impairment Attention / Concentration: Mild Impairment Behavior: Cooperative and Guarded Appearance: Hallucinations: Auditory and Visual Delusions: I hear and see people Thought Content: WNL SI: Presence HI: Vague Thought Process: Helpless and hopless Orientation Impairment: Person and place Insight: poor Judgment: poor Impulse Control: poor Substance Use History (Including family history): Alcohol onset age 18, daily, amount varies. Last use yesterday Cocaine onset age 16, 2-3 times a week, smoke. Last use 2 days. Utox Results: BAL negative TOX positive for cocaine Substance Use Treatment History: Maurilio reported he has been to detox one time in the past. He reported she recently completed the [facility] program through [facility]. He stated the longest clean time was for 3 months while at [facility]. Mental Health Treatment History: Outpatient Mental Health Treatment: None reported Previous or Current Psychological Diagnosis: Bipolar D/O, Alcohol use and Cocaine use Prior Psychiatric Hospitalizations/Residential Treatment Facilities: Maurilio is unknown to [facility]. He reported a history of 3 suicide attempts by cutting and shooting himself in the foot. He stated he was medically admitted and then transferred to a psychiatric hospital in [place]. Other Comments Regarding Mental Health Treatment History: None reported Mental Health Concerns in Family: None reported Trauma History: Muarilio denies any history of sexual abuse or other trauma. Medications: Scheduled Meds: Continuous Infusions: PRN Meds: Risk Assessment: Self-Harm: None Suicidal Behavior: Plan it is a secret . Homicidal Behavior: Vague Physical Assault: None Physical Aggression: None Property Damage: None Verbal Aggression: None Family history of suicide: None reported Protective Factors: Stated he lives with a friend Is able to access his needs. Risk Factors: Non compliant with treatment or medications Substance use Suicide Risk: Based on patient's history and current presentation, their level of risk for intentional lethal harm is considered High Safety Plan Completed: yes Going inpatient psychiatric admission for stabilization and safety. Interventions: Used brief crisis intervention Response to interventions: Maurilio was difficult to engage in the conversation. DSM-5TR Diagnosis: F31.89 Other specified Bipolar and related D/O F10.20 Alcohol use, severe F14.20 Cocaine use, moderate Plan: Maurilio is at high risk for suicidal plan reporting It is a secret of how he is going to do it . Heis at low risk for homicidal plan and intent. He would benefit from inpatient level of care for safety, stabilization and medication evaluation. He is on a section 12 involuntary. Recommendations were discussed with requesting provider. It was a pleasure to assist Maurilio Talley here at [facility]. This report is written and finalized by: Rachel Jean MS Behavioral Health Specialist [facility] (Tel): [phone] / : [phone] documented in this encounter Plan of Treatment Not on file documented as of this encounter Procedures Procedure Name Priority Date/Time Associated Diagnosis Comments CBC WITH AUTO DIFFERENTIAL STAT 03/05/2025 11:59 AM EDT CBC AND DIFFERENTIAL STAT 03/05/2025 11:59 AM EDT BETA HYDROXYBUTYRATE STAT 03/05/2025 9:42 AM EDT MAGNESIUM STAT 03/05/2025 9:42 AM EDT COMPREHENSIVE METABOLIC PANEL STAT 03/05/2025 9:42 AM EDT POCT GLUCOSE BLOOD Routine 03/05/2025 9: 12 AM EDT POCT GLUCOSE BLOOD Routine 03/04/2025 9: 30 PM EDT POCT GLUCOSE BLOOD Routine 03/04/2025 5: 56 PM EDT POCT GLUCOSE BLOOD Routine 03/04/2025 12 :11 PM EDT POCT GLUCOSE BLOOD Routine 03/04/2025 8: 48 AM EDT POCT GLUCOSE BLOOD Routine 03/03/2025 5: 14 PM EDT POCT GLUCOSE BLOOD Routine 03/03/2025 12 :45 PM EDT POCT GLUCOSE BLOOD Routine 03/03/2025 9: 07 AM EDT ECG ANNOTATED 03/03/2025 POCT GLUCOSE BLOOD Routine 03/02/2025 8: 31 PM EDT POCT GLUCOSE BLOOD Routine 03/02/2025 5: 07 PM EDT POCT GLUCOSE BLOOD Routine 03/02/2025 2: 02 PM EDT URINALYSIS WITH REFLEX MICROSCOPIC AND CULTURE STAT 03/02/2025 11:41 AM EDT BOOKER URINE CULTURE TUBE STAT 03/02/20 11:41 AM EDT URINALYSIS WITH REFLEX MICROSCOPIC AND CULTURE STAT 03/02/2025 11:41 AM EDT POCT GLUCOSE BLOOD Routine 03/02/2025 11 :11 AM EDT POCT GLUCOSE BLOOD Routine 03/02/2025 8: 54 AM EDT ECG 12-LEAD STAT 03/02/2025 8:08 AM EDT DRUG ABUSE SCREEN 8A PANEL, URINE STAT 03/02/2025 7:09 AM EDT BUPRENORPHINE SCREEN, URINE STAT 03/02/2025 7:09 AM EDT METHADONE SCREEN, URINE STAT 03/02/20 7:09 AM EDT PHENCYCLIDINE, URINE STAT 03/02/2025 7:09 AM EDT LACTATE, WITH REFLEX STAT 03/02/2025 7:08 AM EDT VENOUS BLOOD GAS CO-OXIMETRY STAT 03/02/2025 7:08 AM EDT BETA HYDROXYBUTYRATE STAT 03/02/2025 7:08 AM EDT CBC WITH AUTO DIFFERENTIAL STAT 03/02/2025 7:08 AM EDT CBC AND DIFFERENTIAL STAT 03/02/2025 7:08 AM EDT PHOSPHORUS STAT 03/02/2025 7:08 AM EDT MAGNESIUM STAT 03/02/2025 7:08 AM EDT VENOUS BLOOD GAS Timed 03/02/2025 7:08 AM EDT VENOUS BLOOD GAS Timed 03/02/2025 7:08 AM EDT ETHANOL STAT Add-on 03/02/2025 7:08 AM EDT ACETAMINOPHEN LEVEL STAT Add-on 03/02/2025 7 :08 AM EDT SALICYLATE LEVEL STAT Add-on 03/02/2025 7:08 AM EDT COMPREHENSIVE METABOLIC PANEL STAT 03/02/2025 7:08 AM EDT POCT GLUCOSE BLOOD Routine 03/02/2025 6: 25 AM EDT documented in this encounter Results * (ABNORMAL) CBC auto differential (03/05/2025 11:59 AM EDT) [facility] Signature WBC 4.7(L) 4.8 - 10.8 K/mcL LAB HEMETOLOGY METHOD 03/05/2025 12:20 PM EDT [facility] RBC 4.80 4.50 - 5.50 M/mcL LAB HEMETOLOGY METHOD 03/05/2025 12:20 PM EDT [facility] Hemoglobin 15.4 13.5 - 17.5 g/dL LAB HEMETOLOGY METHOD 03/05/2025 12:20 PM EDT [facility] Hematocrit 47.2 42.0 - 54.0 % LAB HEMETOLOGY METHOD 03/05/2025 12:20 PM EDT [facility] MCV 97.9 79.0 - 98.0 FL LAB HEMETOLOGY METHOD 03/05/2025 12:20 PM EDT [facility] MCH 32.0 27.0 - 32.0 pcg LAB HEMETOLOGY METHOD 03/05/2025 12:20 PM EDT [facility] MCHC 32.6 32.0 - 37.0 g/dL LAB HEMETOLOGY METHOD 03/05/2025 12:20 PM EDT [facility] RDW 12.4 11.0 - 15.0 % LAB HEMETOLOGY METHOD 03/05/2025 12:20 PM EDT [facility] Platelets 159 130 - 400 K/mcL LAB HEMETOLOGY METHOD 03/05/2025 12:20 PM EDT [facility] MPV 10.9 7.0 - 11.0 FL LAB HEMETOLOGY METHOD 03/05/2025 12:20 PM EDT [facility] NRBC 0.0 <1.0 % LAB HEMETOLOGY METHOD 03/05/2025 12:20 PM EDT [facility] NRBC Absolute 0.00 <0.10 K/mcL LAB HEMETOLOGY METHOD 03/05/2025 12:20 PM EDT [facility] Neutrophils Relative 32.4 % LAB HEMETOLOGY METHOD 03/05/2025 12:20 PM EDT [facility] Lymphocytes Relative 56.3 % LAB HEMETOLOGY METHOD 03/05/2025 12:20 PM EDT [facility] Monocytes Relative 7.7 % LAB HEMETOLOGY METHOD 03/05/2025 12:20 PM EDT [facility] Eosinophils Relative 2.3 % LAB HEMETOLOGY METHOD 03/05/2025 12:20 PM EDT [facility] Basophils Relative 0.9 % LAB HEMETOLOGY METHOD 03/05/2025 12:20 PM EDT [facility] Immature Granulocytes Relative 0.4 % LAB HEMETOLOGY METHOD 03/05/2025 12:20 PM EDT [facility] Neutrophils Absolute 1.52 1.50 - 7.00 K/mcL LAB HEMETOLOGY METHOD 03/05/2025 12:20 PM EDT [facility] Lymphocytes Absolute 2.64 1.00 - 5.00 K/mcL LAB HEMETOLOGY METHOD 03/05/2025 12:20 PM EDT [facility] Monocytes Absolute 0.36 0.20 - 1.00 K/mcL LAB HEMETOLOGY METHOD 03/05/2025 12:20 PM EDT [facility] Eosinophils Absolute 0.11 0.00 - 0.50 K/mcL LAB HEMETOLOGY METHOD 03/05/2025 12:20 PM EDT [facility] Basophils Absolute 0.04 0.00 - 0.20 K/mcL LAB HEMETOLOGY METHOD 03/05/2025 12:20 PM EDT [facility] Immature Granulocytes Absolute 0.02 0.00 - 0.03 K/mcL LAB HEMETOLOGY METHOD 03/05/2025 12:20 PM T [facility] Blood Venous blood specimen / Unknown Venipuncture / Unknown 03/05/2025 11:59 AM EDT 03/05/2025 12:11 PM EDT us Ada Escoto DO LAB BLOOD ORDERABLES Final Re sult [facility] [address] [place] [address], * Beta hydroxybutyrate (03/05/2025 9:42 AM EDT) Pathologist [facility] Beta-Hydroxybu tyrate 1.3 0.2 - 2.8 mg/dL LAB CHEMISTRY METHOD 03/05/2025 10:[address] [facility] Blood Venous blood specimen / Unknown Venipuncture / Unknown 03/05/2025 9:42 AM EDT 03/05/2025 9:44 AM EDT us Ada Tigist DO LAB BLOOD ORDERABLES Final Re sult [facility] [address] [place] [address], * (ABNORMAL) Comprehensive Metabolic Panel (CMP) (03/05/2025 9:42 AM EDT) [facility] Sodium 134 133 - 145 mmol/L LAB CHEMISTRY METHOD 03/05/2025 10:[address] [facility] Comment:Results verified by repeat testing Potassium 4.5 3.5 - 5.5 mmol/L LAB CHEMISTRY METHOD 03/05/2025 10:[address] [facility] Comment:Hemolysis present Chloride 102 96 - 110 mmol/L LAB CHEMISTRY METHOD 03/05/2025 10:[address] [facility] Comment:Results verified by repeat testing CO2 23 21 - 32 mmol/L LAB CHEMISTRY METHOD 03/05/2025 10:[address] [facility] Anion Gap 9 3 - 11 LAB CHEMISTRY METHOD 03/05/2025 10:[address] [facility] Glucose 265(H) 70 - 100 mg/dL LAB CHEMISTRY METHOD 03/05/2025 10:[address] [facility] BUN 14 5 - 25 mg/dL LAB CHEMISTRY METHOD 03/05/2025 10:[address] [facility] Creatinine 0.69(L) 0.70 - 1.30 mg/dL LAB CHEMISTRY METHOD 03/05/2025 10:[address] [facility] eGFR 109 >=60 mL/min/1. 73m2 LAB CHEMISTRY METHOD 03/05/2025 10:[address] [facility] Comment:Calculation based on the Chronic Kidney Disease Epidemiology Collaboration (CKD-EPI) equation refit without adjustment for race. BUN/Creatinine Ratio 20.3 LAB CHEMISTRY METHOD 03/05/2025 10:[address] [facility] Calcium 8.8 8.5 - 10.5 mg/dL LAB CHEMISTRY METHOD 03/05/2025 10:[address] [facility] AST (SGOT) 308(H) 10 - 42 unit/L LAB CHEMISTRY METHOD 03/05/2025 10:[address] [facility] Comment:Hemolysis present ALT (SGPT) 291(H) 10 - 60 unit/L LAB CHEMISTRY METHOD 03/05/2025 10:[address] [facility] Alkaline Phosphatase 82 42 - 121 unit/L LAB CHEMISTRY METHOD 03/05/2025 10:[address] [facility] Total Protein 7.0 6.0 - 8.0 g/dL LAB CHEMISTRY METHOD 03/05/2025 10:[address] [facility] Albumin 2.9(L) 3.2 - 5.0 g/dL LAB CHEMISTRY METHOD 03/05/2025 10:[address] [facility] Total Bilirubin 1.0 0.0 - 1.4 mg/dL LAB CHEMISTRY METHOD 03/05/2025 10:[address] [facility] Blood Venous blood specimen / Unknown Venipuncture / Unknown 03/05/2025 9:42 AM EDT 03/05/2025 9:44 AM EDT us Ada Escoto DO LAB BLOOD ORDERABLES Final Re sult [facility] [address] [place] [address], [place] [phone] * (ABNORMAL) Magnesium (03/05/2025 9:42 AM EDT) Magnesium 1.6(L) 1.9 - 2.6 mg/dL LAB CHEMISTRY METHOD 03/05/2025 10:19 AM EDT [facility] Comment:Hemolysis present Blood Venous blood specimen / Unknown Venipuncture / Unknown 03/05/2025 9:42 AM EDT 03/05/2025 9:44 AM EDT Gregory OSMAN LAB BLOOD ORDERABLES Final Result [facility] [address] [place] [address], [place] [phone] * (ABNORMAL) POCT Glucose, blood (03/05/2025 9:12 AM EDT) Glucose POCT 275(H) 70 - 100 mg/dL 03/05/2025 9:12 AM EDT [facility] Blood Capillary blood specimen / Unknown 03/05/2025 9:12 AM EDT 03/05/2025 9:13 AM EDT Ada Escoto DO LAB POINT OF CARE TE ST DOCKED DEVICE UNSOLICITED RESULTS Final Result [facility] [address] [place] [address], [place] [phone] * (ABNORMAL) POCT Glucose, blood (03/04/2025 9:30 PM EDT) Glucose POCT 334(H) 70 - 100 mg/dL 03/04/2025 9:31 PM EDT [facility] Blood Capillary blood specimen / Unknown 03/04/2025 9:30 PM EDT 03/04/2025 9:32 PM EDT Demetrius Cochran MD LAB POINT OF CARE TE ST DOCKED DEVICE UNSOLICITED RESULTS Final Result Performing Organization Address [facility]/ZIP Co de Phone Number [facility] [address] [place] [address], [place] [phone] * (ABNORMAL) POCT Glucose, blood (03/04/2025 5:56 PM EDT) Glucose POCT 340(H) 70 - 100 mg/dL 03/04/2025 5:56 PM EDT [facility] Blood Capillary blood specimen / Unknown 03/04/2025 5:56 PM EDT 03/04/2025 5:58 PM EDT us Ada Escoto DO LAB POINT OF CARE TE ST DOCKED DEVICE UNSOLICITED RESULTS Final Result Performing Organization Address [facility] Co de Phone Number [facility] [address] [place] [address], [place] [phone] * (ABNORMAL) POCT Glucose, blood (03/04/2025 12:11 PM EDT) Glucose POCT 148(H) 70 - 100 mg/dL 03/04/2025 12:12 PM EDT [facility] Blood Capillary blood specimen / Unknown 03/04/2025 12:11 PM EDT 03/04/2025 12:13 PM EDT us Ada Escoto DO LAB POINT OF CARE TE ST DOCKED DEVICE UNSOLICITED RESULTS Final Result Performing Organization Address City/[facility]/ZIP Co de Phone Number [facility] [address] [place] [address], [place] [phone] * (ABNORMAL) POCT Glucose, blood (03/04/2025 8:48 AM EDT) Glucose POCT 391(H) 70 - 100 mg/dL 03/04/2025 8:49 AM EDT [facility] Blood Capillary blood specimen / Unknown 03/04/2025 8:48 AM EDT 03/04/2025 8:50 AM EDT us Ada Escoto DO LAB POINT OF CARE TE ST DOCKED DEVICE UNSOLICITED RESULTS Final Result Performing Organization Address [facility]/ZIP Co de Phone Number [facility] [address] [place] [address], [place] [phone] * (ABNORMAL) POCT Glucose, blood (03/03/2025 5:14 PM EDT) Glucose POCT 124(H) 70 - 100 mg/dL 03/03/2025 5:17 PM EDT [facility] Blood Capillary blood specimen / Unknown 03/03/2025 5:14 PM EDT 03/03/2025 5:19 PM EDT us Raj Parham MD LAB POINT OF CAR E TEST DOCKED DEVICE UNSOLICITED RESULTS Final Result Performing Organization Address [facility] Co de Phone Number [facility] [address] [place] [address], [place] [phone] * (ABNORMAL) POCT Glucose, blood (03/03/2025 12:45 PM EDT) Glucose POCT 378(H) 70 - 100 mg/dL 03/03/2025 12:46 PM EDT [facility] Blood Capillary blood specimen / Unknown 03/03/2025 12:45 PM EDT 03/03/2025 12:47 PM EDT us Raj Parham MD LAB POINT OF CAR E TEST DOCKED DEVICE UNSOLICITED RESULTS Final Result Performing Organization Address City/[facility]/ZIP Co de Phone Number [facility] [address] [place] [address], [place] [phone] * (ABNORMAL) POCT Glucose, blood (03/03/2025 9:07 AM EDT) Glucose POCT 357(H) 70 - 100 mg/dL 03/03/2025 9:08 AM EDT [facility] Blood Capillary blood specimen / Unknown 03/03/2025 9:07 AM EDT 03/03/2025 9:10 AM EDT Raj Parham MD LAB POINT OF CAR E TEST DOCKED DEVICE UNSOLICITED RESULTS Final Result Performing Organization Address [facility] de Phone Number [facility] [address] [place] [address], [place] [phone] * ECG-Annotated (03/03/2025) Provider Onbase ECG ORDERABLES Final Result * (ABNORMAL) POCT Glucose, blood (03/02/2025 8:31 PM EDT) Glucose POCT 316(H) 70 - 100 mg/dL 03/02/2025 8:32 PM EDT [facility] Blood Capillary blood specimen / Unknown 03/02/2025 8:31 PM EDT 03/02/2025 8:33 PM EDT Demetrius Cochran MD LAB POINT OF CARE TE ST DOCKED DEVICE UNSOLICITED RESULTS Final Result Performing Organization Address [facility] Co de Phone Number [facility] [address] [place] [address], [place] [phone] * (ABNORMAL) POCT Glucose, blood (03/02/2025 5:07 PM EDT) Glucose POCT 277(H) 70 - 100 mg/dL 03/02/2025 5:08 PM EDT [facility] Blood Capillary blood specimen / Unknown 03/02/2025 5:07 PM EDT 03/02/2025 5:09 PM EDT Jfef Dior MD LAB POINT OF CARE TEST DOCKED DEVICE UNSOLICITED RESULTS Final Result Performing Organization Address [facility]/ZIP Co de Phone Number [facility] [address] [place] [address], [place] [phone] * (ABNORMAL) POCT Glucose, blood (03/02/2025 2:02 PM EDT) Glucose POCT 260(H) 70 - 100 mg/dL 03/02/2025 2:02 PM EDT [facility] Blood Capillary blood specimen / Unknown 03/02/2025 2:02 PM EDT 03/02/2025 2:03 PM EDT Jeff Dior MD LAB POINT OF CARE TEST DOCKED DEVICE UNSOLICITED RESULTS Final Result Performing Organization Address [facility] de Phone Number [facility] [address] [place] [address], [place] [phone] * Booker urine culture tube (03/02/2025 11:41 AM EDT) Extra Tube Hold for add-ons. 03/02/2025 2:01 PM EDT [facility] Comment:Auto resulted. Urine Urine specimen obtained by clean catch procedure / Unknown Non-blood Collection / Unknown 03/02/2025 11:41 AM EDT 03/02/2025 12:02 PM EDT us Jeff Dior MD LAB URINE ORDERABLES Final Result Performing Organization Address City/[facility]/ZIP Co de Phone Number [facility] [address] [place] [address], [place] [phone] * (ABNORMAL) Urinalysis with reflex microscopic and culture (03/02/2025 11:41 AM EDT) Specific [place] Urine 1.033(H) 1.003 - 1.030 LAB URINALYSIS - AUTOMATED METHOD 03/02/2025 12:[address] [facility] pH, Urine 7.0 5.0 - 8.0 pH LAB URINALYSIS - AUTOMATED METHOD 03/02/2025 12:[address] [facility] Leukocytes, Urine Negative Negative LAB URINALYSIS - AUTOMATED METHOD 03/02/2025 12:[address] [facility] Nitrite, Urine Negative Negative LAB URINALYSIS - AUTOMATED METHOD 03/02/2025 12:[address] [facility] Protein, Urine Negative <=Trace mg/dL LAB URINALYSIS - AUTOMATED METHOD 03/02/2025 12:[address] [facility] Glucose, Urine >=1000(A) Negative mg/dL LAB URINALYSIS - AUTOMATED METHOD 03/02/2025 12:[address] [facility] Ketones, Urine Trace(A) Negative mg/dL LAB URINALYSIS - AUTOMATED METHOD 03/02/2025 12:[address] [facility] Urobilinogen , Urine 2.0(A) 0.2 - 1.0 mg/dL LAB URINALYSIS - AUTOMATED METHOD 03/02/2025 12:[address] [facility] Bilirubin, Urine Negative Negative LAB URINALYSIS - AUTOMATED METHOD 03/02/2025 12:[address] [facility] Blood, Urine Negative Negative LAB URINALYSIS - AUTOMATED METHOD 03/02/2025 12:[address] [facility] Urine Urine specimen obtained by clean catch procedure / Unknown Non-blood Collection / Unknown 03/02/2025 11:41 AM EDT 03/02/2025 12:02 PM EDT Jeff Dior MD LAB URINE ORDERABLES Final Result Performing Organization Address [facility] Co de Phone Number [facility] [address] [place] [address], [place] [phone] * (ABNORMAL) POCT Glucose, blood (03/02/2025 11:11 AM EDT) Glucose POCT 491(HH) 70 - 100 mg/dL 03/02/2025 11:12 AM EDT [facility] Blood Capillary blood specimen / Unknown 03/02/2025 11:11 AM EDT 03/02/2025 11:13 AM EDT Jeff Dior MD LAB POINT OF CARE TEST DOCKED DEVICE UNSOLICITED RESULTS Final Result Performing Organization Address [facility] de Phone Number [facility] [address] [place] [address], [place] [phone] * (ABNORMAL) POCT Glucose, blood (03/02/2025 8:54 AM EDT) Glucose POCT 398(H) 70 - 100 mg/dL 03/02/2025 8:54 AM EDT [facility] Blood Capillary blood specimen / Unknown 03/02/2025 8:54 AM EDT 03/02/2025 8:55 AM EDT Jeff Dior MD LAB POINT OF CARE TEST DOCKED DEVICE UNSOLICITED RESULTS Final Result Performing Organization Address [facility] Co de Phone Number [facility] [address] [place] [address], [place] [phone] * Electrocardiogram, 12 lead (03/02/2025 8:08 AM EDT) Ventricular Rate ECG 80 BPM GEMUSE Atrial Rate 80 BPM GEMUSE P-R Interval 158 ms GEMUSE QRS Duration 70 ms GEMUSE Q-T Interval 404 ms GEMUSE QTc 465 ms GEMUSE P Wave [place] 66 degrees GEMUSE R [place] 22 degrees GEMUSE T [place] 39 degrees GEMUSE ECG Interpretation Normal sinus rhythm Borderline QT interval Abnormal ECG When compared with ECG of 21-JAN-2025 09:52, No significant change was found Confirmed by Stephanie SPRING YUFENG ([id number]) on 03/02/2025 12:51:24 PM GEMUSE 03/02/2025 8:08 AM EDT 03/02/2025 12:51 PM EDT Gregory OSMAN ECG ORDERABLES Final Resul t GEMUSE * Methadone, urine (03/02/2025 7:09 AM EDT) Pathologist [facility] Methadone Screen, Urine Negative Negative LAB CHEMISTRY METHOD 03/02/2025 7:40 AM EDT [facility] Comment: Assay cutoff 300 ng/mL Semi-quantitative assay for screening purposes only. Unconfirmed screening result should not be used for non-medical purposes. *ALTERNATE METHOD CONFIRMATION DONE UPON REQUEST ONLY* Urine Urine specimen obtained by clean catch procedure / Unknown Non-blood Collection / Unknown 03/02/2025 7:09 AM EDT 03/02/2025 7:12 AM EDT Gregory OSMAN LAB URINE ORDERABLES Final Result [facility] [address] [place] [address], [place] [phone] * Phencyclidine, urine (03/02/2025 7:09 AM EDT) PCP Scrn, Ur Negative Negative LAB CHEMISTRY METHOD 03/02/2025 7:40 AM EDT [facility] Comment: Assay cutoff 25 ng/mL Semi-quantitative assay for screening purposes only. Unconfirmed screening result should not be used for non-medical purposes. *ALTERNATE METHOD CONFIRMATION DONE UPON REQUEST ONLY* Urine Urine specimen obtained by clean catch procedure / Unknown Non-blood Collection / Unknown 03/02/2025 7:09 AM EDT 03/02/2025 7:12 AM EDT Gregory OSMAN LAB URINE ORDERABLES Final Result Performing Organization Address [facility] de Phone Number [facility] [address] [place] [address], * Buprenorphine screen, urine (03/02/2025 7:09 AM EDT) Buprenorphine Screen Urine Negative Negative LAB CHEMISTRY METHOD 03/02/2025 7:40 AM EDT [facility] Urine Urine specimen obtained by clean catch procedure / Unknown Non-blood Collection / Unknown 03/02/2025 7:09 AM EDT 03/02/2025 7:12 AM EDT Narrative [facility] - 03/02/2025 7:40 AM EDT Assay cutoff 5 ng/mL Semi-quantitative assay for screening purposes only. Unconfirmed screening result should not be used for non-medical purposes. *ALTERNATE METHOD CONFIRMATION DONE UPON REQUEST ONLY* Gregory OSMAN LAB URINE ORDERABLES Final Result Performing Organization Address [facility] de Phone Number [facility] [address] [place] [address], [place] [phone] * (ABNORMAL) Drug abuse screen 8a panel, urine (03/02/2025 7:09 AM EDT) Amphetamine Screen, Ur Negative Negative LAB CHEMISTRY METHOD 7:40 AM EDT [facility] Comment:Certain OTC medicati ons containing ephedrine, phenylephrine, pseudoephedrine and phenylpropanolamine can cause false positive results. Barbiturate Screen, Ur Negative Negative LAB CHEMISTRY METHOD 5 7:40 AM EDT [facility] Benzodiazepine Screen, Ur Negative Negative LAB CHEMISTRY METHOD 5 7:40 AM EDT [facility] Cocaine Screen, Ur Positive(A ) Negative LAB CHEMISTRY METHOD 7:40 AM EDT [facility] Opiate Screen, Ur Negative Negative LAB CHEMISTRY METHOD 7:40 AM EDT [facility] Cannabinoid (THC) Screen, Ur Negative Negative LAB CHEMISTRY METHOD 7:40 AM T [facility] Comment:Specimens from patie nts taking pantoprazole sodium (Protonix) have been shown to produce false positive results. Oxycodone Screen, Ur Negative Negative LAB CHEMISTRY METHOD 7:40 AM EDT [facility] Fentanyl, Ur Negative Negative LAB CHEMISTRY METHOD 7:[address] [facility] Urine Urine specimen obtained by clean catch procedure / Unknown Non-blood Collection / Unknown 03/02/2025 7:09 AM EDT 03/02/2025 7:12 AM EDT Narrative [facility] - 03/02/2025 7:40 AM EDT Assay cutoffs: Amphetamines 1000 ng/mL Barbiturates 200 ng/mL Benzodiazepines 200 ng/mL Cocaine 300 ng/mL Fentanyl 1 ng/mL Opiates 300 ng/mL Oxycodone 100 ng/mL THC 50 ng/mL Semi-quantitative assay for screening purposes only. Unconfirmed screening result should not be used for non-medical purposes. *ALTERNATE METHOD CONFIRMATION DONE UPON REQUEST ONLY* us Gregory OSMAN LAB URINE ORDERABLES Final Result [facility] [address] [place] [address], * (ABNORMAL) Salicylate level (03/02/2025 7:08 AM EDT) Salicylate Level <1.7(L) 2.0 - 29.0 mg/dL LAB CHEMISTRY METHOD 03/02/2025 7:41 AM EDT [facility] Blood Venous blood specimen / Unknown Venipuncture / Unknown 03/02/2025 7:08 AM EDT 03/02/2025 7:12 AM EDT Jeff Dior MD LAB BLOOD ORDERABLES Final Result [facility] [address] [place] [address], [place] [phone] * Ethanol (03/02/2025 7:08 AM EDT) Ethanol Level <3 0 - 10 mg/dL LAB CHEMISTRY METHOD 03/02/2025 7:41 AM EDT [facility] Blood Venous blood specimen / Unknown Venipuncture / Unknown 03/02/2025 7:08 AM EDT 03/02/2025 7:12 AM EDT Jeff Dior MD LAB BLOOD ORDERABLES Final Result Performing Organization Address City/[facility]/ZIP Co de Phone Number [facility] [address] [place] [address], [place] [phone] * (ABNORMAL) Acetaminophen level (03/02/2025 7:08 AM EDT) Acetaminophen Level <2.0(L) 10.0 - 30.0 mcg/mL LAB CHEMISTRY METHOD 03/02/2025 7:44 AM EDT [facility] Blood Venous blood specimen / Unknown Venipuncture / Unknown 03/02/2025 7:08 AM EDT 03/02/2025 7:12 AM EDT Jeff Dior MD LAB BLOOD ORDERABLES Final Result [facility] [address] [place] [address], * CBC auto differential (03/02/2025 7:08 AM EDT) [facility] Signature WBC 6.2 4.8 - 10.8 K/mcL LAB HEMETOLOGY METHOD 03/02/2025 7:39 AM EDT [facility] RBC 4.60 4.50 - 5.50 M/mcL LAB HEMETOLOGY METHOD 03/02/2025 7:39 AM EDT [facility] Hemoglobin 14.6 13.5 - 17.5 g/dL LAB HEMETOLOGY METHOD 03/02/2025 7:39 AM EDT [facility] Hematocrit 42.7 42.0 - 54.0 % LAB HEMETOLOGY METHOD 03/02/2025 7:39 AM EDT [facility] MCV 93.6 79.0 - 98.0 FL LAB HEMETOLOGY METHOD 03/02/2025 7:39 AM EDT [facility] MCH 32.0 27.0 - 32.0 pcg LAB HEMETOLOGY METHOD 03/02[facility]2025 7[facility] MCHC 34.2 32.0 - 37.0 g/dL LAB HEMETOLOGY METHOD 03/02/2025 7:39 AM EDT [facility] RDW 11.9 11.0 - 15.0 % LAB HEMETOLOGY METHOD 03/02/2025 7:39 AM EDT [facility] Platelets 200 130 - 400 K/mcL LAB HEMETOLOGY METHOD 03/02/2025 7:[facility] MPV 10.4 7.0 - 11.0 FL LAB HEMETOLOGY METHOD 03/02/2025 7:39 AM EDT [facility] NRBC 0.0 <1.0 % LAB HEMETOLOGY METHOD 03/02/2025 7:[address] [facility] NRBC Absolute 0.00 <0.10 K/mcL LAB HEMETOLOGY METHOD 03/02/2025 7:[address] [facility] Neutrophils Relative 46.8 % LAB HEMETOLOGY METHOD 03/02/2025 7:[address] [facility] Lymphocytes Relative 44.4 % LAB HEMETOLOGY METHOD 03/02/2025 7:[address] [facility] Monocytes Relative 7.3 % LAB HEMETOLOGY METHOD 03/02/2025 7:[address] [facility] Eosinophils Relative 0.5 % LAB HEMETOLOGY METHOD 03/02/2025 7:[address] [facility] Basophils Relative 0.8 % LAB HEMETOLOGY METHOD 03/02/2025 7:[address] [facility] Immature Granulocytes Relative 0.2 % LAB HEMETOLOGY METHOD 03/02/2025 7:[address] [facility] Neutrophils Absolute 2.90 1.50 - 7.00 K/mcL LAB HEMETOLOGY METHOD 03/02/2025 7:[address] [facility] Lymphocytes Absolute 2.75 1.00 - 5.00 K/mcL LAB HEMETOLOGY METHOD 03/02/2025 7:[address] [facility] Monocytes Absolute 0.45 0.20 - 1.00 K/mcL LAB HEMETOLOGY METHOD 03/02/2025 7:[address] [facility] Eosinophils Absolute 0.03 0.00 - 0.50 K/mcL LAB HEMETOLOGY METHOD 03/02/2025 7:[address] [facility] Basophils Absolute 0.05 0.00 - 0.20 K/mcL LAB HEMETOLOGY METHOD 03/02/2025 7:39 AM EDT [facility] Immature Granulocytes Absolute 0.01 0.00 - 0.03 K/mcL LAB HEMETOLOGY METHOD 03/02/2025 7:39 AM EDT [facility] Blood Venous blood specimen / Unknown Venipuncture / Unknown 03/02/2025 7:08 AM EDT 03/02/2025 7:12 AM EDT Gregory OSMAN LAB BLOOD ORDERABLES Final Result [facility] [address] [place] [address], [place] [phone] * (ABNORMAL) Venous blood gas co-oximetry (03/02/2025 7:08 AM EDT) Carboxyhemoglobin 11.7(HH) 0.0 - 3.0 % 03/02/2025 7:[address] [facility] Methemoglobin 0.0(L) 0.2 - 0.5 % 03/02/2025 7:[address] [facility] Oxyhemoglobin 70.9(H) 40 - 70 % 03/02/2025 7:[address] [facility] O2 Sat, Ryan 80.3 % 03/02/2025 7:19 AM EDT [facility] Total Hemoglobin Venous 13.7 12.0 - 18.0 g/dL 03/02/2025 7:[address] [facility] Blood Venous blood specimen / Unknown Venipuncture / Unknown 03/02/2025 7:08 AM EDT 03/02/2025 7:11 AM EDT us Gregory OSMAN LAB BLOOD ORDERABLES Final Result Performing Organization Address City/[facility]/ZIP Co de Phone Number [facility] [address] [place] [address], [place] [phone] * Lactate, with reflex (03/02/2025 7:08 AM EDT) LACTIC ACID 1.2 0.4 - 2.0 mmol/L LAB CHEMISTRY METHOD 03/02/2025 7:39 AM EDT [facility] Blood Venous blood specimen / Unknown Venipuncture / Unknown 03/02/2025 7:08 AM EDT 03/02/2025 7:12 AM EDT Gregory OSMAN LAB BLOOD ORDERABLES Final Result [facility] [address] [place] [address], [place] [phone] * (ABNORMAL) Venous blood gas (03/02/2025 7:08 AM EDT) pH, Ryan 7.40 7.32 - 7.42 pH 03/02/2025 7:16 AM EDT [facility] pCO2, Ryan 53(H) 41 - 51 mmHg 03/02/2025 7:16 AM EDT [facility] pO2, Ryan 47(H) 25 - 40 mmHg 03/02/2025 7:16 AM EDT [facility] HCO3, Venous 29.3(H) 22.0 - 26.0 mmol/L 03/02/2025 7:16 AM EDT [facility] O2 Sat, Ryan 80.5 % 03/02/2025 7:16 AM EDT [facility] Base Excess, Ryan 6.5(H) -2.0 - 2.0 mmol/L 03/02/2025 7:16 AM T [facility] Blood Venous blood specimen / Unknown Venipuncture / Unknown 03/02/2025 7:08 AM EDT 03/02/2025 7:11 AM EDT Gregory OSMAN LAB BLOOD ORDERABLES Final Result Performing Organization Address [facility]/ZIP Co de Phone Number [facility] [address] [place] [address], * (ABNORMAL) Venous blood gas (03/02/2025 7:08 AM EDT) pH, Ryan 7.39 7.32 - 7.42 pH 03/02/2025 7:15 AM EDT [facility] pCO2, Ryan 53(H) 41 - 51 mmHg 03/02/2025 7:15 AM EDT [facility] pO2, Ryan 42(H) 25 - 40 mmHg 03/02/2025 7:15 AM EDT [facility] HCO3, Venous 28.6(H) 22.0 - 26.0 mmol/L 03/02/2025 7:15 AM EDT [facility] O2 Sat, Ryan 80.3 % 03/02/2025 7:15 AM EDT [facility] Base Excess, Ryan 5.7(H) -2.0 - 2.0 mmol/L 03/02/2025 7:15 AM EDT [facility] Blood Venous blood specimen / Unknown Venipuncture / Unknown 03/02/2025 7:08 AM EDT 03/02/2025 7:11 AM EDT Gregory OSMAN LAB BLOOD ORDERABLES Final Result [facility] [address] [place] [address], * (ABNORMAL) Phosphorus (03/02/2025 7:08 AM EDT) Phosphorus 4.6(H) 2.5 - 4.5 mg/dL LAB CHEMISTRY METHOD 03/02/2025 7:41 AM EDT [facility] Blood Venous blood specimen / Unknown Venipuncture / Unknown 03/02/2025 7:08 AM EDT 03/02/2025 7:12 AM EDT Gregory OSMAN LAB BLOOD ORDERABLES Final Result Performing Organization Address [facility]/ZIP Co de Phone Number [facility] [address] [place] [address], [place] [phone] * (ABNORMAL) Beta hydroxybutyrate (03/02/2025 7:08 AM EDT) Beta-Hydroxybu tyrate 8.3(H) 0.2 - 2.8 mg/dL LAB CHEMISTRY METHOD 03/02/2025 7:41 AM EDT [facility] Blood Venous blood specimen / Unknown Venipuncture / Unknown 03/02/2025 7:08 AM EDT 03/02/2025 7:12 AM EDT us Gregory OSMAN LAB BLOOD ORDERABLES Final Result Performing Organization Address [facility] de Phone Number [facility] [address] [place] [address], [place] [phone] * (ABNORMAL) Magnesium (03/02/2025 7:08 AM EDT) Magnesium 1.8(L) 1.9 - 2.6 mg/dL LAB CHEMISTRY METHOD 03/02/2025 7:41 AM EDT [facility] Blood Venous blood specimen / Unknown Venipuncture / Unknown 03/02/2025 7:08 AM EDT 03/02/2025 7:12 AM EDT us Gregory OSMAN LAB BLOOD ORDERABLES Final Result Performing Organization Address [facility]/ZIP Co de Phone Number [facility] [address] [place] [address], [place] [phone] * (ABNORMAL) Comprehensive Metabolic Panel (CMP) (03/02/2025 7:08 AM EDT) Sodium 125(L) 133 - 145 mmol/L LAB CHEMISTRY METHOD 03/02/2025 8:[address] [facility] Potassium 3.9 3.5 - 5.5 mmol/L LAB CHEMISTRY METHOD 03/02/2025 8:[address] [facility] Chloride 86(L) 96 - 110 mmol/L LAB CHEMISTRY METHOD 03/02/2025 8:[address] [facility] CO2 30 21 - 32 mmol/L LAB CHEMISTRY METHOD 03/02/2025 8:[address] [facility] Anion Gap 9 3 - 11 LAB CHEMISTRY METHOD 03/02/2025 8:[address] [facility] Glucose 635(HH) 70 - 100 mg/dL LAB CHEMISTRY METHOD 03/02/2025 8:[address] [facility] BUN 12 5 - 25 mg/dL LAB CHEMISTRY METHOD 03/02/2025 8:[address] [facility] Creatinine 1.11 0.70 - 1.30 mg/dL LAB CHEMISTRY METHOD 03/02/2025 8:[address] [facility] eGFR 78 >=60 mL/min/1. 73m2 LAB CHEMISTRY METHOD 03/02/2025 8:[address] [facility] Comment:Calculation based on the Chronic Kidney Disease Epidemiology Collaboration (CKD-EPI) equation refit without adjustment for race. BUN/Creatinine Ratio 10.8 LAB CHEMISTRY METHOD 03/02/2025 8:[address] [facility] Calcium 9.5 8.5 - 10.5 mg/dL LAB CHEMISTRY METHOD 03/02/2025 8:[address] [facility] AST (SGOT) 221(H) 10 - 42 unit/L LAB CHEMISTRY METHOD 03/02/2025 8:[address] [facility] ALT (SGPT) 291(H) 10 - 60 unit/L LAB CHEMISTRY METHOD 03/02/2025 8:50 AM EDT [facility] Alkaline Phosphatase 121 42 - 121 unit/L LAB CHEMISTRY METHOD 03/02/2025 8:50 AM EDT [facility] Total Protein 8.6(H) 6.0 - 8.0 g/dL LAB CHEMISTRY METHOD 03/02/2025 8:50 AM EDT [facility] Albumin 4.1 3.2 - 5.0 g/dL LAB CHEMISTRY METHOD 03/02/2025 8:50 AM EDT [facility] Total Bilirubin 1.3 0.0 - 1.4 mg/dL LAB CHEMISTRY METHOD 03/02/2025 8:50 AM EDT [facility] Blood Venous blood specimen / Unknown Venipuncture / Unknown 03/02/2025 7:08 AM EDT 03/02/2025 7:12 AM EDT Gregory OSMAN LAB BLOOD ORDERABLES Final Result [facility] [address] [place] [address], * (ABNORMAL) POCT Glucose, blood (03/02/2025 6:25 AM EDT) Glucose POCT >600() 70 - 100 mg/dL 03/02/2025 6:26 AM EDT [facility] POCT Comment RN Notified 03/02/2025 6:26 AM EDT [facility] POCT Comment 1 MD Notified 03/02/2025 6:26 AM EDT [facility] Blood Capillary blood specimen / Unknown 03/02/2025 6:25 AM EDT 03/02/2025 6:27 AM EDT us Generic Provider Poct LAB POINT OF CARE TEST DOCKED DEVICE UNSOLICITED RESULTS Final Result [facility] [address] [place] [address], documented in this encounter Visit Diagnoses Not on filedocumented in this encounter Administered Medications Inactive Administered Medications - up to 3 most recent administrations Medication Order MAR Action Action Date Dose Rate Site ARIPiprazole (ABILIFY) tablet 7.5 mg 7.5 mg, oral, Nightly, First dose on 03/02/25 at 2100 Given 03/04/2025 9:26 PM EDT 7.5 mg Given 03/03/2025 8:42 PM EDT 7.5 mg Given 03/02/2025 9:03 PM EDT 7.5 mg atorvastatin (LIPITOR) tablet 40 mg 40 mg, oral, Daily, First dose on 03/02/25 at 1504 Given 03/05/2025 8:28 AM EDT 40 mg Given 03/04/2025 8:54 AM EDT 40 mg Given 03/03/2025 9:11 AM EDT 40 mg insulin glargine (LANTUS) injection 40 Units 40 Units, subcutaneous, Nightly, First dose on 03/02/25 at 2100, Notify provider: -If patient is currently or will become NPO -If TPN was or will be interrupted or discontinued -For approval to hold long acting insulin Given 03/04/2025 9:37 PM EDT 40 Units Right Upper Arm (Back) Given 03/03/2025 8:42 PM EDT 40 Units Le ft Upper Arm (Back) Given 03/02/2025 9:14 PM EDT 40 Units Le ft Upper Arm (Back) insulin lispro injection 2-12 Units 2-12 Units, subcutaneous, 3 times daily before meals, First dose on 03/02/25 at 1630, Indication: Total Daily Dose (TDD) 40 - 80 units. Correction Scale: Moderate Dose Administer with meal and/or mealtime dose of insulin to correct high blood glucose If mealtime insulin dose not given (e.g. patient NPO or not eating), still administer correction factor for high blood glucose Given 03/05/2025 10:31 AM EDT 6 Units Right Upper Arm (Julián k) Given 03/04/2025 5:59 PM EDT 8 Units Le ft Upper Arm (Back) Given 03/04/2025 8:54 AM EDT 10 Units Ri ght Upper Abdomen insulin regular (HumuLIN R) injection 10 Units 10 Units, subcutaneous, Once, On 03/02/25 at 0905, For 1 dose Given 03/02/2025 10:04 AM EDT 10 Units Left Lower Abdomen magnesium sulfate 2 gram/50 mL (4 %) IVPB 2 g 2 g, intravenous, at 25 mL/hr, Administer over 2 Hours, Once, On 03/02/25 at 0905, For 1 dose New Bag 03/02/2025 10:04 AM EDT 2 g 25 mL/hr sodium chloride 0.9 % bolus 1,000 mL 1,000 mL, intravenous, at 2,000 mL/hr, Administer over 30 Minutes, Once, On 03/02/25 at 0747, For 1 dose New Bag 03/02/2025 8:00 AM EDT 1,000 mL 2000 mL/hr sodium chloride 0.9 % bolus 1,000 mL 1,000 mL, intravenous, at 2,000 mL/hr, Administer over 30 Minutes, Once, On 03/02/25 at 0905, For 1 dose New Bag 03/02/2025 10:04 AM EDT 1,000 mL 2000 mL/hr thiamine (VITAMIN B-1) tablet 100 mg 100 mg, oral, Daily, First dose on 03/02/25 at 1504 Given 03/05/2025 8:28 AM EDT 100 mg Given 03/04/2025 8:54 AM EDT 100 mg Given 03/03/2025 9:11 AM EDT 100 mg traZODone (DESYREL) tablet 150 mg 150 mg, oral, Nightly PRN, sleep, Starting on 03/02/25 at 1458 Given 03/04/2025 9:50 PM EDT 150 mg Given 03/03/2025 8:50 PM EDT 150 mg documented in this encounter Active and Recently Administered Medications Times are shown in EDT. Scheduled Medication Order 03/03/2025 03/04/2025 03/05/2025 ARIPiprazole (ABILIFY) tablet 7.5 mg 7.5 mg, oral, Nightly, First dose on 03/02/25 at 2100 2041 (Given - Provider: Lilly Samuels RN) 2125 (Given - Provider: Magda Munguia, RN) atorvastatin (LIPITOR) tablet 40 mg 40 mg, oral, Daily, First dose on 03/02/25 at 1504 0911 (Given - Provider: Lou Eugene RN) 0854 (Given - Provider: Sheri Moctezuma RN) 0828 (Given - Provider: Neptali Nielsen, JENNI) insulin glargine (LANTUS) injection 40 Units 40 Units, subcutaneous, Nightly, First dose on 03/02/25 at 2100, Notify provider: -If patient is currently or will become NPO -If TPN was or will be interrupted or discontinued -For approval to hold long acting insulin 2041 (Given - Provider: Lilly Samuels RN) 2136 (Given - Provider: Magda Munguia, JENNI) insulin lispro injection 2-12 Units 2-12 Units, subcutaneous, 3 times daily before meals, First dose on 03/02/25 at 1630, Indication: Total Daily Dose (TDD) 40 - 80 units. Correction Scale: Moderate Dose Administer with meal and/or mealtime dose of insulin to correct high blood glucose If mealtime insulin dose not given (e.g. patient NPO or not eating), still administer correction factor for high blood glucose 0911 (Given - Provider: Lou Eugene RN)1316 (Given - Provider: Lou Eugene RN)1716 (Not Given - Provider: Lilyl Samuels RN - Reason: Order parameters not met - Comment: BS -124) 0854 (Given - Provider: Sheri Moctezuma RN - Comment: patient asleep)1212 (Not Given - Provider: Sheri Moctezuma RN - Reason: Other - Comment: BG 148)1759 (Given - Provider: Sheri Moctezuma RN - Comment: waiting for dinner tray) 1031 (Given - Provider: Neptali Nielsen RN - Comment: pt refused, will recheck after lunch)1130 (Not Given - Provider: Neptali Nielsen RN - Reason: Other - Comment: given hour early, given before breakfast eaten late)1630 (Canceled Entry - Provider: Automatic Discharge Provider - Comment: Automatically canceled at discontinue of medication order) magnesium sulfate 2 gram/50 mL (4 %) IVPB 2 g 2 g, intravenous, at 25 mL/hr, Administer over 2 Hours, Once, On Mon03/05/25 at 1515, For 1 dose 1515 (Canceled Entry - Provider: Automatic Discharge Provider - Comment: Automatically canceled at discontinue of medication order) thiamine (VITAMIN B-1) tablet 100 mg 100 mg, oral, Daily, First dose on Mon03/02/25 at 1504 0911 (Given - Provider: Lou Eugene, JENNI) 0854 (Given - Provider: Sheri Moctezuma, JENNI) 0828 (Given - Provider: Neptali Nielsen RN) PRN Medication Order 03/03/2025 03/04/2025 03/05/2025 dextrose (D50W) 50% injection 12.5 g 12.5 g, intravenous, Every 15 min PRN, low blood sugar, moderate hypoglycemia *Patient is Unconscious, NPO, unable to swallow: BG 54 - 69 mg/dl*, Starting on Mon03/02/25 at 1459 dextrose (D50W) 50% injection 25 g 25 g, intravenous, Every 15 min PRN, low blood sugar, severe hypoglycemia *Patient is Unconscious, NPO, unable to swallow: BG LESS than 54 mg/dL*, Starting on Mon03/02/25 at 1459 dextrose 15 gram/60 mL oral solution 15 g 15 g, oral, Every 15 min PRN, low blood sugar, hypoglycemia *Patient conscious AND able to drink and swallow safely*, Starting on Mon03/02/25 at 1459 dextrose 15 gram/60 mL oral solution 30 g 30 g, oral, Every 15 min PRN, low blood sugar, hypoglycemia *Patient conscious AND able to drink and swallow safely*, Starting on Mon03/02/25 at 1459 glucagon HCL injection 1 mg 1 mg, intramuscular, Once as needed, low blood sugar, severe hypoglycemia, Starting on Mon03/02/25 at 1459, For 1 dose melatonin tablet 9 mg 9 mg, oral, Nightly PRN, sleep, Starting on Mon03/02/25 at 1458 traZODone (DESYREL) tablet 150 mg 150 mg, oral, Nightly PRN, sleep, Starting on Mon03/02/25 at 1458 0 (Given - Provider: Lilly Samuels, RN) 2150 (Given - Provider: Magda Munguia, JENNI) documented in this encounter Orders Medications Ordered That Neville ht Not Have Been Administered Count Last Ordered Date First Ordered Date magnesium sulfate 2 gram/50 mL (4 %) IVPB 2 g 1 03/05/2025 dextrose (D50W) 50% injection 12.5 g 1 02/17 dextrose (D50W) 50% injection 25 g 1 2024 dextrose 15 gram/60 mL oral solution 15 g 2 03/02/2025 dextrose 15 gram/60 mL oral solution 30 g 1 03/02/2025 glucagon HCL injection 1 mg 1 03/02/2025 melatonin tablet 9 mg 1 03/02/2025 EKG Orders Without Results Count Last Ordered D ate First Ordered Date ECG 12-LEAD 1 03/02/2025 Consult Count Last Ordered Date First Orde red Date IP CONSULT TO WAREHOUSE ASSOCIATE 1 03/02/2025 documented in this encounter Care Teams Hot Mill Worker Relationship Specialty Start Date End Date Krysten Martins MD [address] [facility] [address] [place] [address] PCP - General 11/22/23 documented as of this encounter
[2025-03-09 12:38] VITALS: BP 106/62; PULSE 85; O2SAT 99
--- NOTE | 2025-03-09 12:54 | ED_ITS ---
[facility] - General Adult General Chief complaint: Recheck/Abnormal Lab/Rx Stated complaint: HIGH BSF ROM CONSTANTINE PER EMS Time Seen by Provider: 03/09/25 12:52 Source: patient Mode of arrival: ambulatory Limitations: no limitations History of Present Illness ED Provider: Dr. Antony [facility] narrative: This is a 54-year-old male history of diabetes presented hospital today for evaluation of hyperglycemia. Patient is coming from [facility]. Patient sugar reading was high at the facility. Patient was given 20 units of insulin. He was unsure what his long-acting and short-acting in nature. Patient states he feels dizzy. He has no other complaints at this time. Related Data Allergies Allergy/AdvReac Type Severity Reaction Status Date / Time No Known Allergies Allergy Verified 03/09/25 13:01 Review of Systems 2 Review of Systems: Pertinent review of systems as mentioned in [facility]. All other system otherwise negative. [facility] Past Medical History [facility] Narrative: Medical history as mentioned in [facility] Social History Social History Advance Directives: No Advance Directives Information Provided: Yes Do you have a plan to hurt others: No Plan Physical Exam ED Exam Exam: General: Appears cachectic sleeping in stretcher comfortably. Head: Normacephalic, atraumatic ENT: oral mucosa moist, neck supple, no tracheal deviation Cardiovascular: regular rate, regular rhythm, no murmurs, rubbing, gallops Respiratory: CTAB, no wheeze, rales, rhonchi Gastrointestinal: Soft, non distended, non tender, non guarding Extremities: No limb pain or swelling, no calf tenderness Neurological: Awake and alert, no facial droop noted Skin: Warm and dry Psychiatric: Appropriate mood and thoughts Vital Signs: Vital Signs - 24 hr 03/09/25 12:59 03/09/25 13:02 03/09/25 13:20 Temperature 97.3 F 97.3 F Pulse Rate 79 79 79 Respiratory Rate 16 16 16 Blood Pressure 97/48 L 97/48 L 112/53 L Pulse Oximetry 98 98 Oxygen Delivery Method Room Air Room Air BMI result Body Mass Index 21.7 Medications Administered Discontinued Medications Generic Name Dose Route Start Last Admin Trade Name Freq PRN Reason Stop Dose Admin Lactated Ringer's 1,000 mls @ 999 mls/hr 03/09/25 13:15 03/09/25 15:01 Lr IV 03/09/25 14:15 Infused .Q1H1M MARIA GUADALUPE Infusion Lactated Ringer's 1,000 mls @ 999 mls/hr 03/09/25 15:15 03/09/25 16:37 Lr IV 03/09/25 16:15 Infused .Q1H1M MARIA GUADALUPE Infusion Insulin Human Regular 10 unit 03/09/25 14:46 03/09/25 15:09 Insulin Regular, Human 100 Unit/Ml 10 Ml Vial IVPUSH 03/09/25 14:47 10 unit ONCE ONE Administration Medical Decision Making Medical Decision Making [facility] Narrative: This is a 54-year-old male history of diabetes presented hospital today for evaluation of hyperglycemia from [facility] We will plan to give patient a bolus IV fluid here. EKG will be obtained we will obtain lab work to rule out DKA. We will obtain a CBC chemistry VBG ketones level. Recheck his sugar here. Patient has no sign of DKA on lab work. We did give patient additional 10 units of IV insulin. Patient's sugar is now 218. Patient is able to eat and drink. Patient was able to ambulate without any issues. Patient will be discharged back to [facility] Differential Diagnosis Differential Diagnoses: The differential diagnosis associated with the presentation includes Hyperglycemia, DKA, diabetes Lab Data [facility] Lab Attestation statement: I reviewed the patient's lab results. 03/09/25 13:16 03/09/25 13:16 Labs: Lab Results 03/09/25 03/09/25 03/09/25 Range/Units 13:16 13:34 14:45 WBC 5.1 (4.8-10.8) X10*3/uL RBC 3.83 L (4.60-5.80) X10*6/uL Hgb 12.7 L (14.0-18.0) g/dl Hct 36.4 L (42.0-52.0) % MCV 95.0 (80.0-98.0) fL MCH 33.2 H (27.0-33.0) pg MCHC 34.9 (31.0-36.0) g/dl RDW 12.0 (11.0-16.0) % Plt Count 140 L (160-400) X10*3/uL MPV 10.9 (9.4-12.4) fL Immature Gran % (Auto) 0.4 (0.0-0.4) % Neut % (Auto) 41.0 L (45-73) % Lymph % (Auto) 42.2 H (20-40) % Love % (Auto) 13.8 H (2-11) % Eos % (Auto) 1.6 (0-4) % Baso % (Auto) 1.0 (0-2) % Lymph # (Auto) 2.1 (1.2-4.9) X10*3/uL Love # (Auto) 0.7 (0.1-1.2) X10*3/uL Eos # (Auto) 0.1 (0.0-0.4) X10*3/uL Baso # (Auto) 0.1 (0.0-0.2) X10*3/uL Abs Immat Gran (auto) 0.02 (0.00-0.03) X10*3/uL Absolute Neuts (auto) 2.1 (2.0-8.3) x10*3/uL Absolute Nucleated RBC 0.000 (0.0-0.012) X10*3/uL Nucleated RBC % (auto) 0.0 (0.0-0.2) /100WBC VBG pH 7.51 H (7.32-7.43) VBG pCO2 38 mmHg VBG pO2 138 mmHg VBG HCO3 31 H (22-26) mmol/L VBG O2 Saturation 100.0 % VBG Base Excess 7.8 mmol/L Sodium 134 L (135-145) mmol/L Potassium 5.0 (3.3-5.1) mmol/L Chloride 96 (96-108) mmol/L Carbon Dioxide 26 (22-29) mmol/L Anion Gap 17 (12-20) BUN 15 (9-16) mg/dL Creatinine 1.07 (0.5-1.4) mg/dL Estim Creat Clear Calc 66.6 Estimated GFR > 60 POC Glucose 574 H* > 600 H* (60-115) mg/dL Random Glucose 695 H* (60-115) mg/dL Calcium 9.5 (8.4-10.2) mg/dL Beta-Hydroxybutyrate 0.22 (0.02-0.27) mmol/L 03/09/25 Range/Units 16:41 WBC (4.8-10.8) X10*3/uL RBC (4.60-5.80) X10*6/uL Hgb (14.0-18.0) g/dl Hct (42.0-52.0) % MCV (80.0-98.0) fL MCH (27.0-33.0) pg MCHC (31.0-36.0) g/dl RDW (11.0-16.0) % Plt Count (160-400) X10*3/uL MPV (9.4-12.4) fL Immature Gran % (Auto) (0.0-0.4) % Neut % (Auto) (45-73) % Lymph % (Auto) (20-40) % Love % (Auto) (2-11) % Eos % (Auto) (0-4) % Baso % (Auto) (0-2) % Lymph # (Auto) (1.2-4.9) X10*3/uL Love # (Auto) (0.1-1.2) X10*3/uL Eos # (Auto) (0.0-0.4) X10*3/uL Baso # (Auto) (0.0-0.2) X10*3/uL Abs Immat Gran (auto) (0.00-0.03) X10*3/uL Absolute Neuts (auto) (2.0-8.3) x10*3/uL Absolute Nucleated RBC (0.0-0.012) X10*3/uL Nucleated RBC % (auto) (0.0-0.2) /100WBC VBG pH (7.32-7.43) VBG pCO2 mmHg VBG pO2 mmHg VBG HCO3 (22-26) mmol/L VBG O2 Saturation % VBG Base Excess mmol/L Sodium (135-145) mmol/L Potassium (3.3-5.1) mmol/L Chloride (96-108) mmol/L Carbon Dioxide (22-29) mmol/L Anion Gap (12-20) BUN (9-16) mg/dL Creatinine (0.5-1.4) mg/dL Estim Creat Clear Calc Estimated GFR POC Glucose 218 H (60-115) mg/dL Random Glucose (60-115) mg/dL Calcium (8.4-10.2) mg/dL Beta-Hydroxybutyrate (0.02-0.27) mmol/L Chronic Conditions Patient?s care impacted by: Diabetes Critical Care Time Critical Care Time Critical Care Time: Yes Total Critical Care Time: 36 Attestation: Time is exclusive of separately billable procedures. Time includes: direct patient care, patient reassessment, coordination of patient care, interpretation of data (laboratory data, pulse oximetry, arterial blood gases and chest xrays), review of patient's medical records, medical consultation and documentation of patient care. Procedures excluded from critical care time: central intravenous line placement and electrocardiography. Discharge Plan Discharge Clinical Impression: Acute hyperglycemia Patient Disposition: Xfer Other Transfer Details: Vivian Reddy Instructions: Diabetic Hyperglycemia (ED) Print Language: Singaporean
[2025-03-09 12:59] VITALS: BP 106/62; BP 97/48; PULSE 79; PULSE 85; RESP 16; TEMP 36.3; O2SAT 98; BMI 21.7
[2025-03-09 13:02] VITALS: BP 97/48; PULSE 79; RESP 16; TEMP 36.3; O2SAT 98
--- NOTE | 2025-03-09 13:02 | ECG_ITS ---
Test Reason : hyperglycemia Blood Pressure : */* mmHG Vent. Rate : 80 BPM Atrial Rate : 80 BPM P-R Int : 156 ms QRS Dur : 70 ms QT Int : 378 ms P-R-T Axes : 60 6 42 degrees QTcB Int : 435 ms Normal sinus rhythm Septal infarct , age undetermined Abnormal ECG No previous ECGs available Referred By: Martha Antony Electronically Signed By: Markus Pendleton
[2025-03-09] MEDS: Lactated Ringers 1,000 ML 999 ML IV ×2 (13:19→15:26)
[2025-03-09 13:20] VITALS: BP 112/53; PULSE 79; RESP 16
[2025-03-09 13:28] LABS: Glucose, Whole Blood 574 mg/dL (60-115)
[2025-03-09 13:31] LABS: Hematocrit 36.4 % (42.0-52.0); Hemoglobin 12.7 g/dl (14.0-18.0); Mean Corpuscular HGB Conc 34.9 g/dl (31.0-36.0); NRBC Abs Auto 0.000 X10*3/uL (0.0-0.012); NRBC Pct Auto 0.0 /100WBC (0.0-0.2); PLT CLUMP 1; SCAN SMEAR FLAG 1
[2025-03-09 13:32] LABS: Imm Gran Abs Auto 0.02 X10*3/uL (0.00-0.03); Imm Gran Pct Auto 0.4 % (0.0-0.4); Lymphocytes Absolute Auto 2.1 X10*3/uL (1.2-4.9); Mean Corpuscular Hemoglobin 33.2 pg (27.0-33.0); Mean Corpuscular Volume 95.0 fL (80.0-98.0); Red Blood Count 3.83 X10*6/uL (4.60-5.80)
[2025-03-09 13:36] LABS: MANUAL DIFF FLAG NO; Platelet Count 140 X10*3/uL (160-400); White Blood Count 5.1 X10*3/uL (4.8-10.8)
[2025-03-09 13:39] LABS: VBG HCO3 31 mmol/L (22-26); VBG O2 % Saturation 100.0 %
[2025-03-09 13:47] LABS: Venous Blood Gas Refer to POC result
--- OUTSIDE RECORDS SUMMARY | 2025-03-09 13:52 | XMS_ITS | Patient Health Record ---
Author Organization [facility] Address [address] [place] [address] Care Team Providers Care Supervisory Geographer Name Role Phone NO, PCP Primary Care Provider Arik Rowe Unavailable [phone] Reason For Referral No Information Plan Of Treatment No Information Insurance Providers Payer Name Payer Address Payer Phone Subscriber Number Group Number Insured Name Patient Relationship to Insured Coverage Start Date Coverage End Date [place] [address] [place] [address] [phone] [id number] MayankLeeannMaurilio Self - patient is the insured 4
--- OUTSIDE RECORDS SUMMARY | 2025-03-09 13:53 | XMS_ITS | Encounter Summary ---
Author Organization [facility] Address [address] [place] [address] Care Team Providers Care Manager Adult Name Role Phone Krysten Martins MD Primary Care Provider [phone] Encounter Details Date Type Department Care Team (Late st Contact Info) Description 03/06/2025 Lab Requisition [facility] - Main Lab [address] [facility] [place] [address] Fabiana Duarte, [address] [address] Other correction (current) drug therapy Social History Tobacco Use Types Packs/Day Years [...] on file documented as of this encounter Functional Status * Are you [...] Lara Mendoza RN documented in this encounter Plan of Treatment Not on file documented as of this encounter Procedures Procedure Name Priority Date/Time Associated Diagnosis Comments COMPREHENSIVE METABOLIC PANEL Routine 03/06/2025 7:00 AM EDT Other perfect binder setter (current) drug therapy documented in this encounter Results * (ABNORMAL) Comprehensive metabolic panel (03/06/2025 7:00 AM EDT) Sodium 133 133 - 145 mmol/L LAB CHEMISTRY METHOD 03/06/2025 10:28 AM [facility] Potassium 4.2 3.5 - 5.5 mmol/L LAB CHEMISTRY METHOD 03/06/2025 10:28 AM [facility] Chloride 95(L) 96 - 110 mmol/L LAB CHEMISTRY METHOD 03/06/2025 10:28 AM [facility] CO2 33(H) 21 - 32 mmol/L LAB CHEMISTRY METHOD 03/06/2025 10:28 AM [facility] Anion Gap 5 3 - 11 LAB CHEMISTRY METHOD 03/06/2025 10:28 AM [facility] Glucose 304(H) 70 - 100 mg/dL LAB CHEMISTRY METHOD 03/06/2025 10:28 AM [facility] BUN 18 5 - 25 mg/dL LAB CHEMISTRY METHOD 03/06/2025 10:28 AM [facility] Creatinine 0.81 0.70 - 1.30 mg/dL LAB CHEMISTRY METHOD 03/06/2025 10:28 AM [facility] eGFR 103 >=60 mL/min/1. 73m2 LAB CHEMISTRY METHOD 03/06/2025 10:28 AM [facility] Comment:Calculation based on the Chronic Kidney Disease Epidemiology Collaboration (CKD-EPI) equation refit without adjustment for race. BUN/Creatinine Ratio 22.2 LAB CHEMISTRY METHOD 03/06/2025 10:28 AM [facility] Calcium 9.1 8.5 - 10.5 mg/dL LAB CHEMISTRY METHOD 03/06/2025 10:28 AM [facility] AST (SGOT) 244(H) 10 - 42 unit/L LAB CHEMISTRY METHOD 03/06/2025 10:28 AM [facility] ALT (SGPT) 317(H) 10 - 60 unit/L LAB CHEMISTRY METHOD 03/06/2025 10:28 AM [facility] Alkaline Phosphatase 96 42 - 121 unit/L LAB CHEMISTRY METHOD 03/06/2025 10:28 AM [facility] Total Protein 6.9 6.0 - 8.0 g/dL LAB CHEMISTRY METHOD 03/06/2025 10:28 AM [facility] Albumin 3.0(L) 3.2 - 5.0 g/dL LAB CHEMISTRY METHOD 03/06/2025 10:28 AM [facility] Total Bilirubin 0.5 0.0 - 1.4 mg/dL LAB CHEMISTRY METHOD 03/06/2025 10:28 AM [facility] Blood Venous blood specimen / Unknown Venipuncture / Unknown 03/06/2025 7:00 AM EDT 03/06/2025 9:33 AM EDT Fabiana Duarte ASSISTANT DESIGNER LAB BLOOD ORDERABLES Final Result [facility] ([facility] [address] [place] [address], documented in this encounter Visit Diagnoses Diagnosis Other perfect binder setter (current) drug therapy documented in this encounter Care Teams Manager Adult Relationship Specialty Start Date End Date Krysten Martins MD [address] [facility] [address] [place] [address] PCP - General 11/22/23 documented as of this encounter
--- OUTSIDE RECORDS SUMMARY | 2025-03-09 13:53 | XMS_ITS | Clinical Summary ---
Author Organization [facility] Address [address] [place] [address] Phone Care Team Providers Care Stockroom Attendant Name Role Phone Krysten Martins MD Primary Care Provider [phone] Allergies No known active allergies Medications albuterol HFA (ProAir HFA) 90 mcg/actuation inhaler Inhale 2 puffs by mouth every 4 (four) hours if needed for wheezing or shortness of breath. 5 01/17/20 26 Active traZODone (DESYREL) 50 mg tablet Take 3 tablets (150 mg total) by mouth at bedtime as needed for sleep for up to 30 doses. 30 tablet 5 Active insulin glargine (LANTUS) 100 unit/mL injection Inject 40 Units under the skin 1 (one) time each day in the morning AND 30 Units at bedtime. 30 mL 5 Active magnesium oxide (MAG-OX) 400 mg (241.3 elemental magnesium) tablet Take 1 tablet (400 mg total) by mouth 1 (one) time each day. 10 tablet 5 Active melatonin 3 mg tablet Take 3 tablets (9 mg total) by mouth at bedtime as needed for sleep. 90 tablet 5 Active folic acid (FOLVITE) 1 mg tablet Take 1 tablet (1 mg total) by mouth 1 (one) time each day. 30 each 5 01/28/20 26 Active pen needle, diabetic 29 gauge x 1/2 needle Use to inject 1-4 times daily as directed. 100 each 5 01/28/20 26 Active atorvastatin (LIPITOR) 40 mg tablet Take 1 tablet (40 mg total) by mouth 1 (one) time each day. Hold This med for next 7 days 90 tablet 2 Active multivitamin tablet Take 1 tablet by mouth 1 (one) time each day. 5 02/17/20 25 ARIPiprazole (ABILIFY) 5 mg tablet Take 1.5 tablets (7.5 mg total) by mouth at bedtime. 45 each 5 02/27/20 25 thiamine 100 mg tablet Take 1 tablet (100 mg total) by mouth 1 (one) time each day. 30 tablet 5 02/27/20 25 Active Problems Problem Noted Date Diagnosed Date Suicidal ideation 01/27/2025 Elevated LFTs 01/27/2025 Noncompliance with medication regimen 01/27/2025 Type 2 diabetes mellitus wit h hyperglycemia, with long-term current use of insulin [place] [place] [facility] [place] 01/27/2025 Transaminitis 01/14/2025 Encounters Date Type Department Care Team Description 03/06/2025 Lab Requisition [facility] [address] [place] [id number] Dona Ghotra 03/06/2025 Lab Requisition [facility] [address] [place] [phone] Fabiana Duarte FNP Other terminal computer operator (current) drug therapy 03/06/2025 Lab Requisition [facility] [address] [place] [phone] Dona Ghotra [facility] [place] [facility] drug therapy 03/02/2025 6:16 AM EDT - 03/05/2025 3:10 PM EDT Emergency [facility] Emergency [address] [place] [id number] Alexandria painter, MD Dimas Aguilar John, MD Wire, Jessica, MD Damri, MD Tigist Cooper Jasmine, DO Kokkinos, Erika, MD Discharge Disposition: Psychiatric Hospital 01/13/2025 2:32 AM EDT - 01/27/2025 5:19 PM EDT Hospital Encounter [facility] Surgical Unit [address] [place] [address] Lulu Perez MD Landry, MD Fatoumata Narayan, MD Megan Zamarripa Nermina, MD Zipagan, MD Jasmina Giraldo, MD Griselda Walters Manikandan, MD Nasser, Tor Richmond MD Suicidal ideation (Primary Dx); Elevated LFTs; Type 2 diabetes mellitus with hyperglycemia, with long-term current use of insulin ([facility] V24, [facility] V28); Noncompliance with medication regimen; Chest pain, unspecified type Discharge Disposition: Psychiatric Hospital from Last 3 Months Surgical History Surgery Date Site/Laterality Comments HERNIA REPAIR ANKLE SURGERY Medical History Medical History Date Comments T2DM (type 2 diabetes mellit us) ([facility] V24, [facility] V28) DX:T2DM (type 2 diabetes marco litus) (HCC) Mixed hyperlipidemia DX:Mixed hy perlipidemia Bipolar disorder ([facility] V2 4, [facility] V28) DX:Bipolar disorder (HCC) Other psychoactive substance dependence, uncomplicated ([facility] V24, [facility] V28) DX:Other psyc hoactive substance dependence, uncomplicated (HCC) Viral hepatitis C without hepatic coma DX:Viral hepatitis C without hepatic coma History of suicide attempt DX:Hi story of suicide attempt Cirrhosis ([facility] V24, [facility] V28) 2019 per EMR Alcohol use disorder 2019 per emr COPD (chronic obstructive pu lmonary disease) [place] [place] [facility] V28) Family History Medical History Relation Name Comments Diabetes Other Relation Name Status Comments Other Social History Tobacco Use Types Packs/Day Years [...] on file Sexual Orientation Not on file Obstetrics History Last Filed Vital Signs Vital Sign Reading [...] Mass Index 20.36 03/02/2025 6:55 AM EDT Plan of Treatment Health Maintenance Due Date Last Done Comments Diabetes: Annual Foot Exam 1978 Diabetes: Annual Retina Eye Exam 1978 DTaP,Tdap,and Td Vaccines (1 - Tdap) 09/21/1987 Hepatitis A Vaccines (1 of 2 - Risk 2-dose series) 09/21/1987 Hepatitis B Vaccines (1 of 3 - 19+ 3-dose series) 09/21/1987 Pneumococcal Vaccine: 50+ Years (1 of 2 - PCV) 09/21/1987 Zoster Vaccines (1 of 2) 2018 Colorectal Cancer Screening: Colonoscopy 01/10/2024 HIV Screening 01/10/2024 Medicare Annual Wellness Visit 01/10/2024 Diabetes: Annual Urine Albumin-Creatinine Ratio (uACR) 04/02/2024 06/08/2018 Depression Screening 06/19/2024 COVID-19 Vaccine ( season) 2025 Influenza Vaccine (#1) 2025 05/22/2019, 2017 Diabetes: Blood Sugar Control Test (HGBA1C) 09/03/2025 03/06/2025, 01/13/2025 Social Influencers of Health Screening 01/17/2026 01/17/2025 Diabetes: Annual GFR (Glomerular Filtration Rate) 03/06/2026 03/06/2025, 03/05/2025, 03/02/2025, Additional history exists Cholesterol Screening (Lipid Panel) 03/06/2030 03/06/2025, 05/31/2018 RSV Immunization Adult Patients (1 - 1-dose 75+ series) 09/21/2043 Hepatitis C Screening Completed 01/14/2025, 025 HIB Vaccines Aged Out No longer eligi ble based on patient's age to complete this topic HPV Vaccines Aged Out No longer eligi ble based on patient's age to complete this topic IPV Vaccines Aged Out No longer eligi ble based on patient's age to complete this topic MMR Vaccines Aged Out No longer eligi ble based on patient's age to complete this topic Meningococcal ACWY Vaccine Aged Out N o longer eligible based on patient's age to complete this topic Meningococcal B Vaccine Aged Out No l onger eligible based on patient's age to complete this topic RSV Immunization Patients Under 20 months Aged Out No longer eligible based on patient's age to complete this topic Varicella Vaccines Aged Out No longer eligible based on patient's age to complete this topic Procedures Procedure Name Priority Date/Time Associated Diagnosis Comments COMPREHENSIVE METABOLIC PANEL Routine 03/06/2025 7:00 AM EDT Other terminal computer operator (current) drug therapy HEMOGLOBIN A1C Routine 03/06/2025 7:00 AM EDT [place] [facility] [place] drug therapy LIPID PANEL WITH REFLEX TO DIRECT LDL Routine 03/06/2025 7:00 AM EDT Other terminal computer operator (current) drug therapy GLUCOSE, RANDOM Routine 03/06/2025 7:00 AM EDT Other terminal computer operator (current) drug therapy CBC WITH AUTO DIFFERENTIAL STAT 03/05/2025 11:59 AM EDT CBC AND DIFFERENTIAL STAT 03/05/2025 11:59 AM EDT BETA HYDROXYBUTYRATE STAT 03/05/2025 9:42 AM EDT COMPREHENSIVE METABOLIC PANEL STAT 03/05/2025 9:42 AM EDT MAGNESIUM STAT 03/05/2025 9:42 AM EDT POCT GLUCOSE [...] BLOOD Routine 03/02/2025 2: 02 PM EDT BOOKER URINE CULTURE TUBE STAT 03/02/2025 11:41 AM EDT URINALYSIS WITH REFLEX MICROSCOPIC AND CULTURE STAT 03/02/2025 11:41 AM EDT URINALYSIS WITH REFLEX MICROSCOPIC AND CULTURE STAT 03/02/2025 11:41 AM EDT POCT GLUCOSE BLOOD Routine 03/02/2025 11 :11 AM EDT POCT GLUCOSE BLOOD Routine 03/02/2025 8: 54 AM EDT ECG 12-LEAD STAT 03/02/2025 8:08 AM EDT METHADONE SCREEN, URINE STAT 03/02/2025 7:09 AM EDT PHENCYCLIDINE, URINE STAT 03/02/2025 7:09 AM EDT BUPRENORPHINE SCREEN, URINE STAT 03/02/2025 7:09 AM EDT DRUG ABUSE SCREEN 8A PANEL, URINE STAT 03/02/2025 7:09 AM EDT SALICYLATE LEVEL STAT Add-on 03/02/2025 7:08 AM EDT ETHANOL STAT Add-on 03/02/2025 7:08 AM EDT ACETAMINOPHEN LEVEL STAT Add-on 03/02/2025 7 :08 AM EDT CBC WITH AUTO DIFFERENTIAL STAT 03/02/2025 7:08 AM EDT VENOUS BLOOD GAS CO-OXIMETRY STAT 03/02/2025 7:08 AM EDT LACTATE, WITH REFLEX STAT 03/02/2025 7:08 AM EDT VENOUS BLOOD GAS Timed 03/02/2025 7:08 AM EDT VENOUS BLOOD GAS Timed 03/02/2025 7:08 AM EDT PHOSPHORUS STAT 03/02/2025 7:08 AM EDT BETA HYDROXYBUTYRATE STAT 03/02/2025 7:08 AM EDT MAGNESIUM STAT 03/02/2025 7:08 AM EDT CBC AND DIFFERENTIAL STAT 03/02/2025 7:08 AM EDT COMPREHENSIVE METABOLIC PANEL STAT 03/02/2025 7:08 AM EDT POCT GLUCOSE BLOOD Routine 03/02/2025 6: 25 AM EDT ECG ANNOTATED 01/29/2025 EXTERNAL ULTRASOUND REPORT 01/29/2025 POCT GLUCOSE BLOOD Routine 01/27/2025 4: 07 PM EDT POCT GLUCOSE BLOOD Routine 01/27/2025 10 :41 AM EDT POCT GLUCOSE BLOOD Routine 01/27/2025 7: 37 AM EDT MANUAL DIFFERENTIAL - SYSMEX WAM Routine 01/27/2025 6:04 AM EDT CBC WITH AUTO DIFFERENTIAL Routine 01/27/2025 6:04 AM EDT HEPATIC FUNCTION PANEL Routine 6:04 AM EDT CBC AND DIFFERENTIAL Routine 01/27/2025 6:04 AM EDT BASIC METABOLIC PANEL Routine 01/27/2025 6:04 AM EDT MAGNESIUM Routine 01/27/2025 6:04 AM EDT PHOSPHORUS Routine 01/27/2025 6:04 AM EDT POCT GLUCOSE BLOOD Routine 01/26/2025 7: 17 PM EDT POCT GLUCOSE BLOOD Routine 01/26/2025 3: 46 PM EDT POCT GLUCOSE BLOOD Routine 01/26/2025 11 :09 AM EDT POCT GLUCOSE BLOOD Routine 01/26/2025 7: 57 AM EDT HEPATIC FUNCTION PANEL Routine 5:38 AM EDT POCT GLUCOSE BLOOD Routine 01/25/2025 7: 20 PM EDT POCT GLUCOSE BLOOD Routine 01/25/2025 3: 54 PM EDT POCT GLUCOSE BLOOD Routine 01/25/2025 3: 27 PM EDT POCT GLUCOSE BLOOD Routine 01/25/2025 10 :37 AM EDT POCT GLUCOSE BLOOD Routine 01/25/2025 8: 48 AM EDT POCT GLUCOSE BLOOD Routine 01/25/2025 7: 35 AM EDT LAVENDER - EDTA Routine 01/25/2025 5:36 AM EDT EXTRA TUBES Routine 01/25/2025 5:36 AM EDT LAVENDER - EDTA Routine 01/25/2025 5:36 AM EDT EXTRA TUBES Routine 01/25/2025 5:36 AM EDT COMPREHENSIVE METABOLIC PANEL Routine 01/25/2025 5:35 AM EDT MAGNESIUM Routine 01/25/2025 5:35 AM EDT PHOSPHORUS Routine 01/25/2025 5:35 AM EDT POCT GLUCOSE BLOOD Routine 01/25/2025 3: 21 AM EDT POCT GLUCOSE BLOOD Routine 01/25/2025 2: 59 AM EDT POCT GLUCOSE BLOOD Routine 01/25/2025 2: 44 AM EDT POCT GLUCOSE BLOOD Routine 01/24/2025 7: 41 PM EDT POCT GLUCOSE BLOOD Routine 01/24/2025 4: 24 PM EDT HEPATIC FUNCTION PANEL Routine 12:57 PM EDT LAVENDER - EDTA Routine 01/24/2025 12:55 PM EDT EXTRA TUBES Routine 01/24/2025 12:55 PM EDT POCT GLUCOSE BLOOD Routine 01/24/2025 11 :22 AM EDT POCT GLUCOSE BLOOD Routine 01/24/2025 7: 46 AM EDT POCT GLUCOSE BLOOD Routine 01/23/2025 8: 01 PM EDT POCT GLUCOSE BLOOD Routine 01/23/2025 3: 40 PM EDT POCT GLUCOSE BLOOD Routine 01/23/2025 11 :13 AM EDT MANUAL DIFFERENTIAL - SYSMEX WAM Routine 01/23/2025 8:35 AM EDT CBC WITH AUTO DIFFERENTIAL Routine 01/23/2025 8:35 AM EDT HEPATIC FUNCTION PANEL Routine 8:35 AM EDT CBC AND DIFFERENTIAL Routine 01/23/2025 8:35 AM EDT BASIC METABOLIC PANEL Routine 01/23/2025 8:35 AM EDT MAGNESIUM Routine 01/23/2025 8:35 AM EDT PHOSPHORUS Routine 01/23/2025 8:35 AM EDT POCT GLUCOSE BLOOD Routine 01/23/2025 7: 42 AM EDT POCT GLUCOSE BLOOD Routine 01/22/2025 7: 59 PM EDT POCT GLUCOSE BLOOD Routine 01/22/2025 4: 09 PM EDT POCT GLUCOSE BLOOD Routine 01/22/2025 10 :52 AM EDT POCT GLUCOSE BLOOD Routine 01/22/2025 7: 43 AM EDT POCT GLUCOSE BLOOD Routine 01/21/2025 7: 58 PM EDT POCT GLUCOSE BLOOD Routine 01/21/2025 4: 41 PM EDT POCT GLUCOSE BLOOD Routine 01/21/2025 11 :32 AM EDT TRANSTHORACIC ECHOCARDIOGRAM (TTE) COMPLETE Routine 01/21/2025 11:02 AM EDT Chest pain, unspecified type ECG 12-LEAD Routine 01/21/2025 9:52 AM EDT TROPONIN I HIGH SENSITIVITY STAT 01/21/2025 9:09 AM EDT POCT GLUCOSE BLOOD Routine 01/21/2025 7: 53 AM EDT CBC WITH AUTO DIFFERENTIAL Routine 01/21/2025 5:25 AM EDT CBC AND DIFFERENTIAL Routine 01/21/2025 5:25 AM EDT BASIC METABOLIC PANEL Routine 01/21/2025 5:25 AM EDT MAGNESIUM Routine 01/21/2025 5:25 AM EDT PHOSPHORUS Routine 01/21/2025 5:25 AM EDT POCT GLUCOSE BLOOD Routine 01/20/2025 8: 16 PM EDT POCT GLUCOSE BLOOD Routine 01/20/2025 4: 26 PM EDT POCT GLUCOSE BLOOD Routine 01/20/2025 11 :09 AM EDT POCT GLUCOSE BLOOD Routine 01/20/2025 8: 09 AM EDT LAVENDER - EDTA Routine 01/20/2025 5:33 AM EDT EXTRA TUBES Routine 01/20/2025 5:33 AM EDT COMPREHENSIVE METABOLIC PANEL Routine 01/20/2025 5:33 AM EDT POCT GLUCOSE BLOOD Routine 01/19/2025 7: 18 PM EDT POCT GLUCOSE BLOOD Routine 01/19/2025 6: 08 PM EDT POCT GLUCOSE BLOOD Routine 01/19/2025 4: 03 PM EDT POCT GLUCOSE BLOOD Routine 01/19/2025 2: 36 PM EDT POCT GLUCOSE BLOOD Routine 01/19/2025 11 :14 AM EDT POCT GLUCOSE BLOOD Routine 01/19/2025 7: 23 AM EDT POCT GLUCOSE BLOOD Routine 01/18/2025 7: 54 PM EDT POCT GLUCOSE BLOOD Routine 01/18/2025 4: 26 PM EDT POCT GLUCOSE BLOOD Routine 01/18/2025 1: 20 PM EDT POCT GLUCOSE BLOOD Routine 01/18/2025 11 :56 AM EDT POCT GLUCOSE BLOOD Routine 01/18/2025 10 :16 AM EDT POCT GLUCOSE BLOOD Routine 01/18/2025 7: 59 AM EDT POCT GLUCOSE BLOOD Routine 01/17/2025 8: 12 PM EDT POCT GLUCOSE BLOOD Routine 01/17/2025 4: 18 PM EDT POCT GLUCOSE BLOOD Routine 01/17/2025 11 :12 AM EDT POCT GLUCOSE BLOOD Routine 01/17/2025 7: 58 AM EDT CBC WITH AUTO DIFFERENTIAL Routine 01/17/2025 5:26 AM EDT HEPATIC FUNCTION PANEL Routine 5:26 AM EDT MAGNESIUM Routine 01/17/2025 5:26 AM EDT BASIC METABOLIC PANEL Routine 01/17/2025 5:26 AM EDT CBC AND DIFFERENTIAL Routine 01/17/2025 5:26 AM EDT POCT GLUCOSE BLOOD Routine 01/16/2025 7: 33 PM EDT POCT GLUCOSE BLOOD Routine 01/16/2025 4: 29 PM EDT POCT GLUCOSE BLOOD Routine 01/16/2025 11 :25 AM EDT POCT GLUCOSE BLOOD Routine 01/16/2025 7: 32 AM EDT CBC WITH AUTO DIFFERENTIAL Routine 01/16/2025 5:42 AM EDT MAGNESIUM Routine 01/16/2025 5:42 AM EDT HEPATIC FUNCTION PANEL Routine 5:42 AM EDT BASIC METABOLIC PANEL Routine 01/16/2025 5:42 AM EDT CBC AND DIFFERENTIAL Routine 01/16/2025 5:42 AM EDT POCT GLUCOSE BLOOD Routine 01/15/2025 8: 32 PM EDT POCT GLUCOSE BLOOD Routine 01/15/2025 4: 07 PM EDT POCT GLUCOSE BLOOD Routine 01/15/2025 11 :31 AM EDT NM HEPATOBILIARY SYSTEM IMAGING Routine 01/15/2025 10:38 AM EDT COMPLETE BLOOD COUNT Routine 01/15/2025 7:46 AM EDT COMPREHENSIVE METABOLIC PANEL Routine 01/15/2025 7:46 AM EDT POCT GLUCOSE BLOOD Routine 01/14/2025 10 :30 PM EDT POCT GLUCOSE BLOOD Routine 01/14/2025 3: 55 PM EDT HEPATITIS B CORE ANTIBODY IGM Add-On 01/14/2025 11:25 AM EDT AST, ALT, BILIRUBIN ELR STATE REPORTABLES STAT 01/14/2025 11:25 AM EDT HEPATIC FUNCTION PANEL STAT Add-on 11:25 AM EDT BASIC METABOLIC PANEL STAT 01/14/2025 11:25 AM EDT HEPATITIS C VIRUS QUANTITATIVE PCR STAT 01/14/2025 11:25 AM EDT POCT GLUCOSE BLOOD Routine 01/14/2025 8: 05 AM EDT POCT GLUCOSE BLOOD Routine 01/13/2025 8: 07 PM EDT POCT GLUCOSE BLOOD Routine 01/13/2025 5: 03 PM EDT POCT GLUCOSE BLOOD Routine 01/13/2025 12 :40 PM EDT CULTURE BLOOD STAT 01/13/2025 12:33 PM EDT CULTURE BLOOD STAT 01/13/2025 12:33 PM EDT POCT GLUCOSE BLOOD Routine 01/13/2025 11 :34 AM EDT US ABDOMEN LIMITED STAT 01/13/2025 10 :05 AM EDT POCT GLUCOSE BLOOD Routine 01/13/2025 10 :04 AM EDT POCT GLUCOSE BLOOD Routine 01/13/2025 8: 42 AM EDT BOOKER URINE CULTURE TUBE STAT 01/13/2025 6:47 AM EDT URINALYSIS WITH REFLEX MICROSCOPIC AND CULTURE STAT 01/13/2025 6:47 AM EDT URINALYSIS WITH REFLEX MICROSCOPIC AND CULTURE STAT 01/13/2025 6:47 AM EDT POCT GLUCOSE BLOOD Routine 01/13/2025 6: 36 AM EDT ECG 12-LEAD STAT 01/13/2025 6:05 AM EDT TIGER TOP URINE TUBE Routine 01/13/2025 5:29 AM EDT BOOKER URINE CULTURE TUBE Routine 01/13/2025 5:29 AM EDT EXTRA TUBES Routine 01/13/2025 5:29 AM EDT DRUG ABUSE SCREEN 8A PANEL, URINE STAT 01/13/2025 5:29 AM EDT AST, ALT, BILIRUBIN ELR STATE REPORTABLES Routine 01/13/2025 5:03 AM EDT HEPATITIS PANEL, ACUTE WITH REFLEX TO CONFIRMATION Add-On 01/13/2025 5:03 AM EDT HEMOGLOBIN A1C Add-On 01/13/2025 5:03 AM EDT PHOSPHORUS STAT Add-on 01/13/2025 5:03 AM EDT OSMOLALITY STAT Add-on 01/13/2025 5:03 AM EDT MAGNESIUM STAT Add-on 01/13/2025 5:03 AM EDT BETA HYDROXYBUTYRATE STAT Add-on 01/13/2025 5:03 AM EDT LACTATE, WITH REFLEX STAT 01/13/2025 5:03 AM EDT VENOUS BLOOD GAS STAT 01/13/2025 5:03 AM EDT CBC WITH AUTO DIFFERENTIAL STAT 01/13/2025 5:03 AM EDT SALICYLATE LEVEL STAT 01/13/2025 5:03 AM EDT ETHANOL STAT 01/13/2025 5:03 AM EDT ACETAMINOPHEN LEVEL STAT 01/13/2025 5 :03 AM EDT THYROID STIMULATING HORMONE WITH REFLEX TO FREE T4 AND FREE T3 STAT 01/13/2025 5:03 AM EDT COMPREHENSIVE METABOLIC PANEL STAT 01/13/2025 5:03 AM EDT CBC AND DIFFERENTIAL STAT 01/13/2025 5:03 AM EDT POCT GLUCOSE BLOOD Routine 01/13/2025 5: 02 AM EDT from Last 3 Months Results * (ABNORMAL) Lipid panel with reflex to direct LDL (03/06/2025 7:00 AM EDT) [facility] Cholesterol 119 0 - 200 mg/dL LAB CHEMISTRY METHOD 03/06/2025 10:29 AM EDT [facility] Triglycerides 109 0 - 150 mg/dL LAB CHEMISTR[facility] HDL 32(L) >=40 mg/dL LAB CHEMISTRY METHOD 03/06/2025 10:29 AM [facility] LDL Calculated 65 0 - 100 mg/dL LAB CHEMISTRY METHOD 03/06/2025 10:29 AM EDT [facility] Comment:Estimated LDL Calcul ated using equation: Total cholesterol - HDL cholesterol - (Triglycerides/5) VLDL Cholesterol Romeo 21.8 mg/dL LAB CHEMISTRY METHOD 03/06/2025 10:29 AM [facility] Non HDL Chol. (LDL+VLDL) 87 <145 mg/dL LAB CHEMISTRY METHOD 03/06/2025 10:29 AM [facility] Chol/HDL Ratio 3.7 0.0 - 4.4 LAB CHEMISTRY METHOD 03/06/2025 10:29 AM [facility] Blood Venous blood specimen / Unknown Venipuncture / Unknown 03/06/2025 7:00 AM EDT 03/06/2025 9:35 AM EDT Dona Fuller [facility] LAB BLOOD ORDERABLES Alona l Result [facility] [address] [place] [address], * (ABNORMAL) Hemoglobin A1c (03/06/2025 7:00 AM EDT) Only the most recent of2 resultswithin the time period is included. Hemoglobin A1C 14.0(H) <6.5 % LAB CHEMISTRY METHOD 03/06/2025 12:29 PM EDT [facility] Mean Bld Glu Estim. 355 mg/dL LAB CHEMISTRY METHOD 03/06/2025 12:29 PM EDT [facility] Blood Venous blood specimen / Unknown Venipuncture / Unknown 03/06/2025 7:00 AM EDT 03/06/2025 9:35 AM EDT [facility] LAB BLOOD ORDERABLES Alona l Result Performing Organization Address City/[facility]/ZIP Co de Phone Number [facility] [address] [place] [address], [place] [phone] * (ABNORMAL) Glucose, random (03/06/2025 7:00 AM EDT) Glucose 310(H) 70 - 100 mg/dL LAB CHEMISTRY METHOD 03/06/2025 10:30 AM EDT [facility] Blood Venous blood specimen / Unknown Venipuncture / Unknown 03/06/2025 7:00 AM EDT 03/06/2025 9:35 AM EDT [facility] LAB BLOOD ORDERABLES Alona l Result Performing Organization Address [facility] Co de Phone Number [facility] [address] [place] [address], [place] [phone] * (ABNORMAL) Comprehensive metabolic panel (03/06/2025 7:00 AM EDT) Only the most recent of7 resultswithin the time period is included. Sodium 133 133 - 145 mmol/L LAB CHEMISTRY METHOD 03/06/2025 10:28 AM EDT [facility] Potassium 4.2 3.5 - 5.5 mmol/L LAB CHEMISTRY METHOD 03/06/2025 10:28 AM EDT [facility] Chloride 95(L) 96 - 110 mmol/L LAB CHEMISTRY METHOD 03/06/2025 10:28 AM EDT [facility] CO2 33(H) 21 - 32 mmol/L LAB CHEMISTRY METHOD 03/06/2025 10:28 AM [facility] Anion Gap 5 3 - 11 LAB CHEMISTRY METHOD 03/06/2025 10:28 AM [facility] Glucose 304(H) 70 - 100 mg/dL LAB CHEMISTRY METHOD 03/06/2025 10:28 AM [facility] BUN 18 5 - 25 mg/dL LAB CHEMISTRY METHOD 03/06/2025 10:28 AM [facility] Creatinine 0.81 0.70 - 1.30 mg/dL LAB CHEMISTRY METHOD 03/06/2025 10:28 AM [facility] eGFR 103 >=60 mL/min/1. 73m2 LAB CHEMISTRY METHOD 03/06/2025 10:28 AM [facility] Comment:Calculation based on the Chronic Kidney Disease Epidemiology Collaboration (CKD-EPI) equation refit without adjustment for race. BUN/Creatinine Ratio 22.2 LAB CHEMISTRY METHOD 03/06/2025 10:28 AM [facility] Calcium 9.1 8.5 - 10.5 mg/dL LAB CHEMISTRY METHOD 03/06/2025 10:28 AM [facility] AST (SGOT) 244(H) 10 - 42 unit/L LAB CHEMISTRY METHOD 03/06/2025 10:28 AM [facility] ALT (SGPT) 317(H) 10 - 60 unit/L LAB CHEMISTRY METHOD 03/06/2025 10:28 AM [facility] Alkaline Phosphatase 96 42 - 121 unit/L LAB CHEMISTRY METHOD 03/06/2025 10:28 AM [facility] Total Protein 6.9 6.0 - 8.0 g/dL LAB CHEMISTRY METHOD 03/06/2025 10:28 AM [facility] Albumin 3.0(L) 3.2 - 5.0 g/dL LAB CHEMISTRY METHOD 03/06/2025 10:28 AM [facility] Total Bilirubin 0.5 0.0 - 1.4 mg/dL LAB CHEMISTRY METHOD 03/06/2025 10:28 AM EDT [facility] Blood Venous blood specimen / Unknown Venipuncture / Unknown 03/06/2025 7:00 AM EDT 03/06/2025 9:33 AM EDT us Fabiana Duarte LOAN TELLER LAB BLOOD ORDERABLES Final Result [facility] [address] [place] [address], [place] [phone] * (ABNORMAL) CBC auto differential (03/05/2025 11:59 AM EDT) Only the most recent of8 resultswithin the time period is included. WBC 4.7(L) 4.8 - 10.8 K/mcL LAB HEMETOLOGY METHOD 03/05/2025 12:20 PM EDT [facility] RBC 4.80 4.50 - 5.50 M/mcL LAB HEMETOLOGY METHOD 03/05/2025 12:20 PM EDT [facility] Hemoglobin 15.4 13.5 - 17.5 g/dL LAB HEMETOLOGY METHOD 03/05/2025 12:20 PM EDT [facility] Hematocrit 47.2 42.0 - 54.0 % LAB HEMETOLOGY METHOD 03/05/2025 12:20 PM EDT [facility] MCV 97.9 79.0 - 98.0 FL LAB HEMETOLOGY METHOD 03/05/2025 12:20 PM EDT [facility] MCH 32.0 27.0 - 32.0 pcg LAB HEMETOLOGY METHOD 03/05/2025 12:20 PM EDT [facility] MCHC 32.6 32.0 - 37.0 g/dL LAB HEMETOLOGY METHOD 03/05/2025 12:20 PM EDT [facility] RDW 12.4 11.0 - 15.0 % LAB HEMETOLOGY METHOD 03/05/2025 12:20 PM EDT [facility] Platelets 159 130 - 400 K/mcL LAB HEMETOLOGY METHOD 03/05/2025 12:20 PM EDT [facility] MPV 10.9 7.0 - 11.0 FL LAB HEMETOLOGY METHOD 03/05/2025 12:20 PM EDT [facility] NRBC 0.0 <1.0 % LAB HEMETOLOGY METHOD 03/05/2025 12:20 PM EDT [facility] NRBC Absolute 0.00 <0.10 K/mcL LAB [facility]EMETOLOGY [facility]ils Relative 32.4 % [facility]EM[facility]OLOG[facility] METHOD [facility] Lymphocytes Relative 56.3 % LAB HEMETOLOGY METHOD [facility]/05[facility] Monocytes Relative 7.7 % LAB HEMETOLOGY METHOD 03/05/2025 12:20 PM [facility] Eosinophils Relative 2.3 % LAB HEMETOLOGY METHOD 03/05/2025 12:20 PM [facility] Basophils Relative 0.9 % LAB HEMETOLOGY METHOD 03/05/2025 12:20 PM [facility] Immature Granulocytes Relative 0.4 % LAB HEMETOLOGY METHOD [facility]/05[facility]20[facility] Neutrophils Absolute 1.52 1.50 - 7.00 K/mcL LAB HEMETOLOGY [facility] Lymphocytes Absolute 2.64 1.00 - 5.00 K/mcL LAB HEMETOLOGY METHOD 03/05/2025 12:20 PM EDT [facility] Monocytes Absolute 0.36 0.20 - 1.00 K/mcL LAB HEMETOLOGY METHOD 03/05/2025 12:20 PM EDT [facility] Eosinophils Absolute 0.11 0.00 - 0.50 K/[facility] LAB HEMETOLOGY METHOD 03/05/2025 12:20 PM EDT [facility] Basophils Absolute 0.04 0.00 - 0.20 K/[facility] LAB HEMETOLOGY METHOD 03/05/2025 12:20 PM EDT [facility] Immature Granulocytes Absolute 0.02 0.00 - 0.03 K/[facility] LAB HEMETOLOGY METHOD 03/05/2025 12:20 PM EDT [facility] Blood Venous blood specimen / Unknown Venipuncture / Unknown 03/05/2025 11:59 AM EDT 03/05/2025 12:11 PM EDT [facility] LAB BLOOD ORDERABLES Final Re sult Performing Organization Address [facility]/ZIP Co de Phone Number [facility] [address] [place] [address], [place] [phone] * Beta hydroxybutyrate (03/05/2025 9:42 AM EDT) Only the most recent of3 resultswithin the time period is included. Beta-Hydroxybu tyrate 1.3 0.2 - 2.8 mg/dL LAB CHEMISTRY METHOD 03/05/2025 10:19 AM EDT [facility] Blood Venous blood specimen / Unknown Venipuncture / Unknown 03/05/2025 9:42 AM EDT 03/05/2025 9:44 AM EDT [facility] LAB BLOOD ORDERABLES Final Re sult Performing Organization Address [facility]/ZIP Co de Phone Number [facility] [address] [place] [address], [place] [phone] * (ABNORMAL) Magnesium (03/05/2025 9:42 AM EDT) Only the most recent of9 resultswithin the time period is included. Magnesium 1.6(L) 1.9 - 2.6 mg/dL LAB CHEMISTRY METHOD 03/05/2025 10:19 AM EDT [facility] Comment:Hemolysis present Blood Venous blood specimen / Unknown Venipuncture / Unknown 03/05/2025 9:42 AM EDT 03/05/2025 9:44 AM EDT Gregory OSMAN LAB BLOOD ORDERABLES Final Result Performing Organization Address City/[facility]/ZIP Co de Phone Number [facility] [address] [place] [address], [place] [phone] * (ABNORMAL) POCT Glucose, blood (03/05/2025 9:12 AM EDT) Only the most recent of84 resultswithin the time period is included. Pathologist [facility] Glucose POCT 275(H) 70 - 100 mg/dL 03/05/2025 9:12 AM EDT [facility] Blood Capillary blood specimen / Unknown 03/05/2025 9:12 AM EDT 03/05/2025 9:13 AM EDT Ada Escoto DO LAB POINT OF CARE TE ST DOCKED DEVICE UNSOLICITED RESULTS Final Result Performing Organization Address City/[facility]/ZIP Co de Phone Number [facility] [address] [place] [address], [place] [phone] * ECG-Annotated (03/03/2025) Only the most recent of2 resultswithin the time period is included. Provider Onbase MD ECG ORDERABLES Final Result * (ABNORMAL) Urinalysis with reflex microscopic and culture (03/02/2025 11:41 AM EDT) Only the most recent of2 resultswithin the time period is included. Specific [place] Urine 1.033(H) 1.003 - 1.030 LAB URINALYSIS - AUTOMATED METHOD 03/02/2025 12:17 PM [facility] pH, Urine 7.0 5.0 - 8.0 pH LAB URINALYSIS - AUTOMATED METHOD 03/02/2025 12:17 PM [facility] Leukocytes, Urine Negative Negative LAB URINALYSIS - AUTOMATED METHOD 03/02/2025 12:17 PM [facility] Nitrite, Urine Negative Negative LAB URINALYSIS - AUTOMATED METHOD 03/02/2025 12:17 PM [facility] Protein, Urine Negative <=Trace mg/dL LAB URINALYSIS - AUTOMATED METHOD 03/02/2025 12:17 PM [facility] Glucose, Urine >=1000(A) Negative mg/dL LAB URINALYSIS - AUTOMATED METHOD 03/02/2025 12:17 PM [facility] Ketones, Urine Trace(A) Negative mg/dL LAB URINALYSIS - AUTOMATED METHOD 03/02/2025 12:17 PM [facility] Urobilinogen , Urine 2.0(A) 0.2 - 1.0 mg/dL LAB URINALYSIS - AUTOMATED METHOD 03/02/2025 12:17 PM [facility] Bilirubin, Urine Negative Negative LAB URINALYSIS - AUTOMATED METHOD 03/02/2025 12:17 PM [facility] Blood, Urine Negative Negative LAB URINALYSIS - AUTOMATED METHOD 03/02/2025 12:17 PM [facility] Urine Urine specimen obtained by clean catch procedure / Unknown Non-blood Collection / Unknown 03/02/2025 11:41 AM EDT 03/02/2025 12:02 PM EDT Jeff Dior MD LAB URINE ORDERABLES Final Result Performing Organization Address [facility] Co de Phone Number [facility] [address] [place] [address], [place] [phone] * Booker urine culture tube (03/02/2025 11:41 AM EDT) Only the most recent of3 resultswithin the time period is included. Pathologist [facility] Extra Tube Hold for add-ons. 03/02/2025 2:01 PM EDT [facility] Comment:Auto resulted. Urine Urine specimen obtained by clean catch procedure / Unknown Non-blood Collection / Unknown 03/02/2025 11:41 AM EDT 03/02/2025 12:02 PM EDT Jeff Dior MD LAB URINE ORDERABLES Final Result Performing Organization Address [facility] [[email or web address]] de Phone Number [facility] [address] [place] [address], [place] [phone] * Electrocardiogram, 12 lead (03/02/2025 8:08 AM EDT) Only the most recent of3 resultswithin the time period is included. Ventricular Rate ECG 80 BPM GEMUSE Atrial Rate 80 BPM GEMUSE P-R Interval 158 ms GEMUSE QRS Duration 70 ms GEMUSE Q-T Interval 404 ms GEMUSE QTc 465 ms GEMUSE P Wave [place] 66 degrees GEMUSE R [place] 22 degrees GEMUSE T [place] 39 degrees GEMUSE ECG Interpretation Normal sinus rhythm Borderline QT interval Abnormal ECG When compared with ECG of 21-JAN-2025 09:52, No significant change was found Confirmed by Stephanie SPRING YUFENG ([id number]) on 03/02/2025 12:51:24 PM GEMUSE 03/02/2025 8:08 AM EDT 03/02/2025 12:51 PM EDT Gregory OSMAN ECG ORDERABLES Final Resul t Performing Organization Address [facility] Co de Phone Number GEMUSE * (ABNORMAL) Drug abuse screen 8a panel, urine (03/02/2025 7:09 AM EDT) Only the most recent of2 resultswithin the time period is included. Amphetamine Screen, Ur Negative Negative LAB CHEMISTRY METHOD 5 7:40 AM [facility] Comment:Certain OTC medicati ons containing ephedrine, phenylephrine, pseudoephedrine and phenylpropanolamine can cause false positive results. Barbiturate Screen, Ur Negative Negative LAB CHEMISTRY METHOD 5 7:40 AM [facility] Benzodiazepine Screen, Ur Negative Negative LAB CHEMISTRY METHOD 7:40 AM [facility] Cocaine Screen, Ur Positive(A ) Negative LAB CHEMISTRY METHOD 5 7:40 AM [facility] Opiate Screen, Ur Negative Negative LAB CHEMISTRY METHOD 7:40 AM [facility] Cannabinoid (THC) Screen, Ur Negative Negative LAB CHEMISTRY METHOD 5 7:40 AM [facility] Comment:Specimens from patie nts taking pantoprazole sodium (Protonix) have been shown to produce false positive results. Oxycodone Screen, Ur Negative Negative LAB CHEMISTRY METHOD 5 7:40 AM [facility] Fentanyl, Ur Negative Negative LAB CHEMISTRY METHOD 5 7:40 AM [facility] Urine Urine specimen obtained by clean catch procedure / Unknown Non-blood Collection / Unknown 03/02/2025 7:09 AM EDT 03/02/2025 7:12 AM [facility] - 03/02/2025 7:40 AM EDT Assay [...] URINE ORDERABLES Final Result Performing Organization Address [facility] [[email or web address]] de Phone Number [facility] [address] [place] [address], [place] [phone] * Buprenorphine screen, urine (03/02/2025 7:09 AM EDT) Buprenorphine Screen Urine Negative Negative LAB CHEMISTRY METHOD 03/02/2025 7:40 AM EDT [facility] Urine Urine specimen obtained by clean catch procedure / Unknown Non-blood Collection / Unknown 03/02/2025 7:09 AM EDT 03/02/2025 7:12 AM EDT Narrative [facility] - 03/02/2025 7:40 AM EDT Assay cutoff 5 ng/mL Semi-quantitative assay for screening purposes only. Unconfirmed screening result should not be used for non-medical purposes. *ALTERNATE METHOD CONFIRMATION DONE UPON REQUEST ONLY* us Gregory OSMAN LAB URINE ORDERABLES Final Result Performing Organization Address [facility] [[email or web address]] de Phone Number [facility] [address] [place] [address], [place] [phone] * Methadone, urine (03/02/2025 7:09 AM EDT) [facility] Methadone Screen, Urine Negative Negative LAB CHEMISTRY METHOD 03/02/2025 7:40 AM EDT [facility] Comment: Assay cutoff 300 ng/mL Semi-quantitative assay for screening purposes only. Unconfirmed screening result should not be used for non-medical purposes. *ALTERNATE METHOD CONFIRMATION DONE UPON REQUEST ONLY* Urine Urine specimen obtained by clean catch procedure / Unknown Non-blood Collection / Unknown 03/02/2025 7:09 AM EDT 03/02/2025 7:12 AM EDT Gregory [facility] LAB URINE ORDERABLES Final Result Performing Organization Address [facility]/ZIP Co de Phone Number [facility] [address] [place] [address], [place] [phone] * Phencyclidine, urine (03/02/2025 7:09 AM EDT) PCP Scrn, Ur Negative Negative LAB CHEMISTRY METHOD 03/02/2025 7:40 AM EDT [facility] Comment: Assay cutoff 25 ng/mL Semi-quantitative assay for screening purposes only. Unconfirmed screening result should not be used for non-medical purposes. *ALTERNATE METHOD CONFIRMATION DONE UPON REQUEST ONLY* Urine Urine specimen obtained by clean catch procedure / Unknown Non-blood Collection / Unknown 03/02/2025 7:09 AM EDT 03/02/2025 7:[address] [facility] LAB URINE ORDERABLES Final Result Performing Organization Address [facility] Co de Phone Number [facility] [address] [place] [address], [place] [phone] * Lactate, with reflex (03/02/2025 7:08 AM EDT) Only the most recent of2 resultswithin the time period is included. LACTIC ACID 1.2 0.4 - 2.0 mmol/L LAB CHEMISTRY METHOD 03/02/2025 7:39 AM EDT [facility] Blood Venous blood specimen / Unknown Venipuncture / Unknown 03/02/2025 7:08 AM EDT 03/02/2025 7:[address] [facility] LAB BLOOD ORDERABLES Final Result Performing Organization Address City/[facility]/ZIP Co de Phone Number [facility] [address] [place] [address], [place] [phone] * (ABNORMAL) Venous blood gas co-oximetry (03/02/2025 7:08 AM EDT) Carboxyhemoglobin 11.7(HH) 0.0 - 3.0 % 03/02/2025 7:19 AM EDT [facility] Methemoglobin 0.0(L) 0.2 - 0.5 % 03/02/2025 7:19 AM EDT [facility] Oxyhemoglobin 70.9(H) 40 - 70 % 03/02/2025 7:19 AM EDT [facility] O2 Sat, Ryan 80.3 % 03/02/2025 7:19 AM EDT [facility] Total Hemoglobin Venous 13.7 12.0 - 18.0 g/dL 03/02/2025 7:19 AM EDT [facility] Blood Venous blood specimen / Unknown Venipuncture / Unknown 03/02/2025 7:08 AM EDT 03/02/2025 7:11 AM EDT Gregory OSMAN LAB BLOOD ORDERABLES Final Result Performing Organization Address City/[facility]/ZIP Co de Phone Number [facility] [address] [place] [address], * (ABNORMAL) Phosphorus (03/02/2025 7:08 AM EDT) Only the most recent of6 resultswithin the time period is included. Phosphorus 4.6(H) 2.5 - 4.5 mg/dL LAB CHEMISTRY METHOD 03/02/2025 7:41 AM EDT [facility] Blood Venous blood specimen / Unknown Venipuncture / Unknown 03/02/2025 7:08 AM EDT 03/02/2025 7:12 AM EDT us Gregory OSMAN LAB BLOOD ORDERABLES Final Result [facility] [address] [place] [address], [place] [phone] * (ABNORMAL) Venous blood gas (03/02/2025 7:08 AM EDT) Only the most recent of3 resultswithin the time period is included. pH, Ryan 7.40 7.32 - 7.42 pH 03/02/2025 7:16 AM EDT [facility] pCO2, Ryan 53(H) 41 - 51 mmHg 03/02/2025 7:16 AM EDT [facility] pO2, Ryan 47(H) 25 - 40 mmHg 03/02/2025 7:16 AM EDT [facility] HCO3, Venous 29.3(H) 22.0 - 26.0 mmol/L 03/02/2025 7:16 AM EDT [facility] O2 Sat, Ryan 80.5 % 03/02/2025 7:16 AM EDT [facility] Base Excess, Ryan 6.5(H) -2.0 - 2.0 mmol/L 03/02/2025 7:16 AM EDT [facility] Blood Venous blood specimen / Unknown Venipuncture / Unknown 03/02/2025 7:08 AM EDT 03/02/2025 7:11 AM EDT Gregory OSMAN LAB BLOOD ORDERABLES Final Result [facility] [address] [place] [address], [place] [phone] * Ethanol (03/02/2025 7:08 AM EDT) Only the most recent of2 resultswithin the time period is included. Pathologist [facility] Ethanol Level <3 0 - 10 mg/dL LAB CHEMISTRY METHOD 03/02/2025 7:41 AM EDT [facility] Blood Venous blood specimen / Unknown Venipuncture / Unknown 03/02/2025 7:08 AM EDT 03/02/2025 7:12 AM EDT Jeff Dior MD LAB BLOOD ORDERABLES Final Result Performing Organization Address City/[facility]/ZIP Co de Phone Number [facility] [address] [place] [address], [place] [phone] * (ABNORMAL) Acetaminophen level (03/02/2025 7:08 AM EDT) Only the most recent of2 resultswithin the time period is included. Acetaminophen Level <2.0(L) 10.0 - 30.0 mcg/mL LAB CHEMISTRY METHOD 03/02/2025 7:44 AM EDT [facility] Blood Venous blood specimen / Unknown Venipuncture / Unknown 03/02/2025 7:08 AM EDT 03/02/2025 7:12 AM EDT Jeff Dior MD LAB BLOOD ORDERABLES Final Result Performing Organization Address [facility] [[email or web address]] de Phone Number [facility] [address] [place] [address], [place] [phone] * (ABNORMAL) Salicylate level (03/02/2025 7:08 AM EDT) Only the most recent of2 resultswithin the time period is included. Salicylate Level <1.7(L) 2.0 - 29.0 mg/dL LAB CHEMISTRY METHOD 03/02/2025 7:41 AM EDT [facility] Blood Venous blood specimen / Unknown Venipuncture / Unknown 03/02/2025 7:08 AM EDT 03/02/2025 7:12 AM EDT Jeff Dior MD LAB BLOOD ORDERABLES Final Result Performing Organization Address City/[facility]/ZIP Co de Phone Number [facility] [address] [place] [address], [place] [phone] * External Ultrasound Report (01/29/2025) Anatomical Region Laterality Modality Ultrasound us Provider Onbase MD STRONG US PROCEDURES Final Resul t * (ABNORMAL) Manual differential (01/27/2025 6:04 AM EDT) Only the most recent of2 resultswithin the time period is included. Neutrophils % 40.0 % LAB HEMETOLOGY [facility] Lymphocytes % 40.0 % LAB HEMETOLOGY METHOD 01/27/2025 7:30 AM [facility] Reactive Lymphocyte 5.00 % LAB HEMETOLOGY METHOD 01/27/2025 7:30 AM [facility] Monocytes % 11.0 % LAB HEMETOLOGY METHOD 01/27/2025 7:30 AM [facility] Eosinophils % 3.0 % LAB HEMETOLOGY METHOD 01/27/2025 7:30 AM [facility] Basophils % 2.0 % LAB HEMETOLOGY METHOD 01/27/2025 7:30 AM [facility] Neutrophils Absolute Manual 2.60 1.50 - 7.00 K/mcL LAB HEMETOLOGY METHOD 01/27/2025 7:30 AM [facility] Lymphocytes Absolute 2.60 1.00 - 5.00 K/mcL LAB HEMETOLOGY METHOD 01/27/2025 7:30 AM [facility] Reactive Lymph Abs Manual 0.33(H) 0.00 - 0.00 lym LAB HEMETOLOGY METHOD 01/27/2025 7:30 AM [facility] Monocytes Absolute Manual 0.72 0.20 - 1.00 K/mcL LAB HEMETOLOGY METHOD 01/27/2025 7:30 AM [facility] Eosinophils Absolute Manual 0.20 0.00 - 0.50 K/mcL LAB HEMETOLOGY METHOD 01/27/2025 7:30 AM EDT [facility] Basophils Absolute Manual 0.13 0.00 - 0.20 K/mcL LAB HEMETOLOGY METHOD 01/27/2025 7:30 AM EDT [facility] Rbc Morphology Consistent with indices Consistent with indices, Normal for LAB HEMETOLOGY METHOD 01/27/2025 7:30 AM EDT [facility] Comment:RBC: Morphology agre es with CBC Platelet Morphology - WAM See Note(A) Normal LAB HEMETOLOGY METHOD 01/27/2025 7:30 AM EDT [facility] Comment:PLT: Normal Blood Venous blood specimen / Unknown Venipuncture / Unknown 01/27/2025 6:04 AM EDT 01/27/2025 6:24 AM EDT Williams Villalobos MD LAB BLOOD ORDERABLES Fi nal Result [facility] [address] [place] [address], * (ABNORMAL) Hepatic function panel (01/27/2025 6:04 AM EDT) Only the most recent of7 resultswithin the time period is included. Total Protein 6.7 6.0 - 8.0 g/dL LAB CHEMISTRY METHOD 01/27/2025 7:01 AM EDT [facility] Albumin 2.8(L) 3.2 - 5.0 g/dL LAB CHEMISTRY METHOD 01/27/2025 7:01 AM EDT [facility] Total Bilirubin 0.5 0.0 - 1.4 mg/dL LAB CHEMISTRY METHOD [facility] Bilirubin, Direct 0.2 0.0 - 0.3 mg/dL LAB CHEMISTRY METHOD 01/27/2025 7:01 AM [facility] Bilirubin, Indirect 0.3 0.0 - 1.1 mg/dL LAB CHEMISTRY METHOD 01/27/2025 7:01 AM [facility] ALT (SGPT) 470(H) 10 - 60 unit/L LAB CHEMISTRY METHOD 01/27/2025 7:01 AM [facility] AST (SGOT) 283(H) 10 - 42 unit/L LAB CHEMISTRY METHOD 01/27/2025 7:01 AM [facility] Alkaline Phosphatase 138(H) 42 - 121 unit/L LAB CHEMISTRY METHOD 01/27/2025 7:01 AM [facility] Blood Venous blood specimen / Unknown Venipuncture / Unknown 01/27/2025 6:04 AM EDT 01/27/2025 6:23 AM EDT Williams Villalobos MD LAB BLOOD ORDERABLES Fi nal Result [facility] [address] [place] [address], * (ABNORMAL) Basic metabolic panel (01/27/2025 6:04 AM EDT) Only the most recent of6 resultswithin the time period is included. Sodium 135 133 - 145 mmol/L LAB CHEMISTRY METHOD 01/27/2025 7:01 AM [facility] Potassium 4.9 3.5 - 5.5 mmol/L LAB CHEMISTRY METHOD 01/27/2025 7:01 AM [facility] Chloride 99 96 - 110 mmol/L LAB CHEMISTRY METHOD 01/27/2025 7:01 AM [facility] CO2 34(H) 21 - 32 mmol/L LAB CHEMISTRY METHOD 01/27/2025 7:01 AM [facility] Anion Gap 2(L) 3 - 11 LAB CHEMISTRY METHOD [facility]2025 [facility] Glucose 328(H) 70 - 100 mg/dL LAB CHEMISTRY METHOD 01/27/2025 7:01 AM [facility] BUN 22 5 - 25 mg/dL LAB CHEMISTRY METHOD [facility]2025 7[facility] Creatinine 0.99 0.70 - 1.30 mg/dL LAB CHEMISTRY METHOD 01/27/2025 7:[facility] eGFR 89 >=60 mL/min/1. 73m2 LAB CHEMISTRY METHOD 01/27/2025 7:01 AM [facility] Comment:Calculation based on the Chronic Kidney Disease Epidemiology Collaboration (CKD-EPI) equation refit without adjustment for race. BUN/Creatinine Ratio 22.2 LAB CHEMISTRY METHOD 01/27/2025 7:01 AM [facility] Calcium 9.2 8.5 - 10.5 mg/dL LAB CHEMISTRY METHOD 01/27/2025 7:01 AM [facility] Blood Venous blood specimen / Unknown Venipuncture / Unknown 01/27/2025 6:04 AM EDT 01/27/2025 6:23 AM EDT Williams Villalobos MD LAB BLOOD ORDERABLES Fi nal Result [facility] [address] [place] [address], * Lavender tube (01/25/2025 5:36 AM EDT) Only the most recent of4 resultswithin the time period is included. Extra Tube Hold for add-ons. 01/25/2025 8:01 AM EDT [facility] Comment:Auto resulted. Blood Venous blood specimen / Unknown Venipuncture / Unknown 01/25/2025 5:36 AM EDT 01/25/2025 6:31 AM EDT us Williams Villalobos MD LAB BLOOD ORDERABLES Fi nal Result [facility] [address] [place] [address], [place] [phone] * (ABNORMAL) TRANSTHORACIC ECHOCARDIOGRAM (TTE) COMPLETE (01/21/2025 11:02 AM EDT) Left Atrium Minor [place] 4.4 cm CV PACS Left Atrium [place] 4.6 cm CV PACS LA Area Sys (A2C) 13 cm2 CV PACS LA Area Sys (A4C) 14 cm2 CV PACS LA Volume (BP) 31 mL CV PACS RA Area 11.2 cm2 CV PACS RA 2D Volume 26 mL CV PACS AV Mean Gradient 2 mmHg CV PACS Ao VTI 19.9 cm CV PACS AV Peak El 0.9 m/s CV PACS AV Peak Gradient 3 mmHg CV PACS AV Area Continuity Equation 2.7 cm2 CV PACS AV Area Peak Velocity 2.6 cm2 CV PACS Aortic Sinus Valsalva 3.5 cm CV PACS IVC Proximal 0.8 cm CV PACS IVSD 1.1(A) 0.6 - 1.0 cm CV PACS LVIDD 4.0(A) 4.2 - 5.8 cm CV PACS LVIDS 2.4(A) 2.5 - 4.0 cm CV PACS LVOT Diameter 2.0 cm CV PACS LVOT Mean El 0.5 m/s CV PACS LVOT Mean Grad 1 mmHg CV PACS LVOT Peak VTI 17.3 cm CV PACS LVOT Peak El 0.8 m/s CV PACS LVOT Peak Gradient 2 mmHg CV PACS LVPWD 1.1(A) 0.6 - 1.0 cm CV PACS MV E' Tissue Velocity Lateral 13 cm/s CV PACS MV E' Tissue Velocity Septal 9 cm/s CV PACS LVOT Area 3.1 cm2 CV PACS LVOT Stroke Volume 54 mL CV PACS E Wave Deceleration Time 218 119 - 242 ms CV PACS MV Peak A El 0.54 m/s CV PACS MV Peak E El 0.80 m/s CV PACS PV Acceleration Time 127 ms CV PACS PV Acceleration Time 127 ms CV PACS PV Peak Velocity 0.9 m/s CV PACS PV Peak Gradient 3 mmHg CV PACS RV Diastolic Basal Dimension 3.1 2.5 - 4.1 cm CV PACS RV S' 11 cm/s CV PACS TAPSE 25 mm CV PACS TR Peak Velocity 2.25 m/s CV PACS TR Peak Gradient 20 mmHg CV PACS E/E' Ratio Septal 9 CV PACS E/E' Ratio Averaged 8 CV PACS LVOT Stroke Index 32 mL/m2 CV PACS Relative Wall Thickness ratio 0.55 CV PACS LVOT:AV VTI Index 0.87 CV PACS FS 40 % CV PACS LV Mass 2D 146 g CV PACS LVOT flow 157 mL/s CV PACS RA 2D Volume Index 16 mL/m2 CV PACS VICTOR M Index (VTI) 1.63 cm2/m2 CV PACS VICTOR M Index (Pk El) 1.56 cm2/m2 CV PACS LVIDD Index 2.40 cm/m2 CV PACS LVIDS Index 1.44 cm/m2 CV PACS AV Velocity Ratio 0.89 CV PACS E/A Ratio 1.5 CV PACS E/E' Ratio Lateral 6 CV PACS LA Volume Index (BP) 19 mL/m2 CV PACS LV Mass Index 2D 87 g/m2 CV PACS BSA 1.66 m2 CV PACS Right Ventricular Peak Systolic Pressure 23 mmHg CV PACS Est. RA Pressure 3 mmHg CV PACS Anatomical Region Laterality Modality Ultrasound Narrative 01/21/2025 11:18 AM EDT Left ventricle cavity size is normal. There is mild hypertrophy. Systolic function is normal with an ejection fraction of 55-60%. There are no regional LV wall motion abnormalities. There is no diastolic dysfunction. Right ventricle cavity is normal. Right ventricular systolic function is normal. No hemodynamically significant valve disease. See remainder of the report for additional findings. Left Ventricle Left ventricle cavity size is normal. There is mild hypertrophy. Systolic function is normal with an ejection fraction of 55-60%. There are no regional LV wall motion abnormalities. There is no diastolic dysfunction. Right Ventricle Right ventricle cavity appears normal. Systolic function is normal. Left Atrium Left atrium volume index is normal. Right Atrium Right atrium cavity is normal. IVC/SVC RA pressures is estimated to be 3 mmHg (IVC diameter <21 mm and decreases >50% during inspiration). Mitral Valve The leaflets are mildly thickened. There is mild annular calcification. There is trace regurgitation. There is no evidence of mitral valve stenosis. Tricuspid Valve The leaflets are mildly thickened. There is mild regurgitation. The right ventricular systolic pressure is normal. The RVSP is estimated at 23 mmHg. Aortic Valve The aortic valve is trileaflet. There is no regurgitation or stenosis. Pulmonic Valve Visualized portions of the pulmonic valve appear normal. There is trace pulmonic valve regurgitation. Ascending Aorta The Sinus of Valsalva is normal. The ascending aorta is not well visualized. Pericardium Pericardium appears normal. There is no pericardial effusion. Study Details Overall the study quality was adequate. us Williams Villalobos MD CV ECHO PROCEDURES Alona l Result * Troponin I high sensitivity (01/21/2025 9:09 AM EDT) High Sensitivity Troponin I 5 <=79 ng/L LAB CHEMISTRY METHOD 01/21/2025 9:46 AM EDT [facility] Blood Venous blood specimen / Unknown Venipuncture / Unknown 01/21/2025 9:09 AM EDT 01/21/2025 9:12 AM EDT Narrative [facility] - 01/21/2025 9:46 AM EDT High levels of biotin in samples may falsely decrease hsTroponin values. Use caution when interpreting hsTroponin results in patients taking biotin who exhibit renal impairment (eGFR <60) or in patients taking more than 20 mg/day of biotin. us Williams Villalobos MD LAB BLOOD ORDERABLES Fi nal Result [facility] [address] [place] [address], [place] [phone] * NM Hepatobiliary System Imaging (01/15/2025 10:38 AM EDT) Anatomical Region Laterality Modality Body Nuclear Medicine 01/15/2025 10:2 4 AM EDT Impressions 01/15/2025 10:25 AM EDT Impression: No evidence of cystic or common bile duct obstruction. Teleshayna OSMAN ([id number]) -------- FINAL REPORT -------- Dictated By: Carlene Obrien Dictated Date: 01/15/2025 10:24 ET Assigned Physician: Carlene Obrien Reviewed and Electronically Signed By: Carlene Obrien Signed Date: 01/15/2025 10:25 ET Workstation ID: [id number] Transcribed By: Self Edit Transcribed Date: 01/15/2025 10:24 ET Narrative 01/15/2025 10:25 AM EDT History: Cholecystitis. Comparison: Right upper quadrant ultrasound 01/13/25 Technique: Continuous anterior imaging of the abdomen was performed for 60 minutes following the intravenous administration of 4.4 mCi technetium 99m Choletec. Findings: The initial image demonstrates a normal, homogeneous pattern of radiotracer distribution throughout the liver. Activity is seen within the bile ducts by 5 minutes, within the gallbladder by 5 minutes, and within the small bowel by 45 minutes. There is normal washout of hepatic activity. Procedure Note Carlene Obrien MD - 01/15/2025 History: Cholecystitis. Comparison: Right upper quadrant ultrasound 01/13/25 Technique: Continuous anterior imaging of the abdomen was performed for 60minutes following the intravenous administration of 4.4 mCi technetium 99mCholetec. Findings: The initial image demonstrates a normal, homogeneous pattern ofradiotracer distribution throughout the liver. Activity is seen within thebile ducts by 5 minutes, within the gallbladder by 5 minutes, and withinthe small bowel by 45 minutes. There is normal washout of hepatic activity. IMPRESSION: Impression: No evidence of cystic or common bile duct obstruction. Telerad JACQUI ([id number]) -------- FINAL REPORT -------- Dictated By: Carlene Obrien Dictated Date: 01/15/2025 10:24 ET Assigned Physician: Carlene Obrien Reviewed and Electronically Signed By: Carlene Obrien Signed Date: 01/15/2025 10:25 ET Workstation ID: [id number] Transcribed By: Self Edit Transcribed Date: 01/15/2025 10:24 ET Marika Guzman MD [facility] PROCEDURES Final Result * (ABNORMAL) Complete blood count (01/15/2025 7:46 AM EDT) [facility] WBC 6.8 4.8 - 10.8 K/mcL LAB HEMETOLOGY METHOD 01/15/2025 8:17 AM EDT [facility] RBC 4.30(L) 4.50 - 5.50 M/mcL LAB HEMETOLOGY METHOD 01/15/2025 8:17 AM [facility] Hemoglobin 13.7 13.5 - 17.5 g/dL LAB HEMETOLOGY METHOD 01/15/2025 8:17 AM [facility] Hematocrit 41.0(L) 42.0 - 54.0 % LAB HEMETOLOGY METHOD 01/15/2025 8:17 AM [facility] MCV 96.0 79.0 - 98.0 FL LAB HEMETOLOGY METHOD 01/15/2025 8:17 AM [facility] MCH 32.1(H) 27.0 - 32.0 pcg LAB HEMETOLOGY METHOD 01/15/2025 8:17 AM [facility] MCHC 33.4 32.0 - 37.0 g/dL LAB HEMETOLOGY METHOD 01/15/2025 8:17 AM [facility] RDW 12.6 11.0 - 15.0 % LAB HEMETOLOGY METHOD 01/15/2025 8:17 AM [facility] Platelets 189 130 - 400 K/mcL LAB HEMETOLOGY METHOD 01/15/2025 8:17 AM [facility] MPV 10.2 7.0 - 11.0 FL LAB HEMETOLOGY METHOD 01/15/2025 8:17 AM EDT [facility] NRBC 0.0 <1.0 % LAB HEMETOLOGY METHOD 01/15/2025 8:17 AM EDT [facility] NRBC Absolute 0.00 <0.10 K/mcL LAB HEMETOLOGY METHOD 01/15/2025 8:17 AM EDT [facility] Blood Venous blood specimen / Unknown Venipuncture / Unknown 01/15/2025 7:46 AM EDT 01/15/2025 8:04 AM EDT us Marika Guzman MD LAB BLOOD ORDERABLES Final Res ult [facility] [address] [place] [address], [place] [phone] * (ABNORMAL) AST, ALT, Bilirubin ELR state reportables (01/14/2025 11:25 AM EDT) Only the most recent of2 resultswithin the time period is included. ALT (SGPT) 202(H) 10 - 60 unit/L LAB CHEMISTRY METHOD 01/14/2025 2:59 PM EDT [facility] AST (SGOT) 249(H) 10 - 42 unit/L LAB CHEMISTRY METHOD 01/14/2025 2:59 PM EDT [facility] Bilirubin, Direct 0.3 0.0 - 0.3 mg/dL LAB CHEMISTRY METHOD 01/14/2025 2:59 PM EDT [facility] Total Bilirubin 0.6 0.0 - 1.4 mg/dL LAB CHEMISTRY METHOD 01/14/2025 2:59 PM EDT [facility] Blood Venous blood specimen / Unknown Venipuncture / Unknown 01/14/2025 11:25 AM EDT 01/14/2025 11:28 AM EDT us Lulu Perez MD LAB BLOOD ORDERABLES Final Res ult Performing Organization Address City/[facility]/ZIP Co de Phone Number [facility] [address] [place] [address], [place] [phone] * (ABNORMAL) Hepatitis C virus quantitative molecular study (01/14/2025 11:25 AM EDT) [facility] HCV Qual Interp Detected (A) Not Detected LAB MOLECULAR DIAGNOSTICS METHOD 01/14/2025 2:25 PM EDT [facility] HCV RNA Quantitative 2,764,34 6(H) <12 I Unit/mL LAB MOLECULAR DIAGNOSTICS METHOD 01/14/2025 2:25 PM EDT [facility] HCV RNA Quantitative Log 6.44(H) <1.08 Log IU/mL LAB MOLECULAR DIAGNOSTICS METHOD 01/14/2025 2:25 PM EDT [facility] Blood Venous blood specimen / Unknown Venipuncture / Unknown 01/14/2025 11:25 AM EDT 01/14/2025 11:28 AM EDT Lulu Perez MD LAB BLOOD ORDERABLES Final Res ult Performing Organization Address City/[facility]/ZIP Co de Phone Number [facility] [address] [place] [address], [place] [phone] * Hepatitis B core antibody IgM (01/14/2025 11:25 AM EDT) [facility] Hep B Core IgM Negative Negative LAB CHEMISTRY METHOD 01/14/2025 5:54 PM EDT [facility] Blood Venous blood specimen / Unknown Venipuncture / Unknown 01/14/2025 11:25 AM EDT 01/14/2025 11:29 AM EDT Narrative [facility] - 01/14/2025 5:54 PM EDT Over the counter supplements containing high doses of biotin may interfere with this assay. If interference is suspected, patients shoud be retested after refraining from biotin supplements for 72 hours. us Mindy OSMAN LAB BLOOD ORDERABLES Final Resu lt Performing Organization Address [facility]/ZIP Co de Phone Number [facility] [address] [place] [address], [place] [phone] * Blood Culture, Peripheral Draw #2 (01/13/2025 12:33 PM EDT) Only the most recent of2 resultswithin the time period is included. Culture, Blood No growth at 5 days LAB MICROBIOLOGY METHOD 01/18/2025 2:01 PM EDT [facility] Blood Venous blood specimen / Unknown Venipuncture / Unknown 01/13/2025 12:33 PM EDT 01/13/2025 12:54 PM EDT Antoni Cooper MD LAB MICROBIOLOGY - GENERAL ORDERABLES Final Result Performing Organization Address [email or web address]] de Phone Number [facility] [address] [place] [address], [place] [phone] * [place] Abdomen Limited (01/13/2025 10:05 AM EDT) Anatomical Region Laterality Modality Body Ultrasound 01/13/2025 10:0 4 AM EDT Impressions 01/13/2025 10:06 AM EDT CHOLELITHIASIS WITH DISTENDED GALLBLADDER AND MILD GALLBLADDER WALL THICKENING. ALTHOUGH SONOGRAPHIC RED SIGN IS NEGATIVE, FINDINGS MAY REFLECT CHOLECYSTITIS IN THE APPROPRIATE CLINICAL SETTING. NO BILIARY DUCT DILATATION. HEPATIC STEATOSIS. -------- FINAL REPORT -------- Dictated By: STEVEN SCOTT Dictated Date: 01/13/2025 10:04 ET Assigned Physician: STEVEN SCOTT Reviewed and Electronically Signed By: STEVEN SCOTT Signed Date: 01/13/2025 10:06 ET Workstation ID: [id number] Transcribed By: Self Edit Transcribed Date: 01/13/2025 10:04 ET Narrative 01/13/2025 10:06 AM EDT PROCEDURE: US ABDOMEN LIMITED INDICATION: Gallbladder disease TECHNIQUE: 2-D booker scale, color Doppler ultrasound of the abdomen. COMPARISON: No priors available. FINDINGS: Visualized portions of the pancreas, aorta, and IVC are within normal limits. Hepatic steatosis. No focal liver lesions. Normal directional flow within the main portal vein. Distended gallbladder with cholelithiasis. Mild gallbladder wall thickening. Sonographic Erd sign is negative. No biliary duct dilatation. Common bile duct measures 4 mm. Right kidney measures 10.2 cm in length. No right hydronephrosis. Procedure Note Steven Scott MD - 01/13/2025 PROCEDURE: US ABDOMEN LIMITED INDICATION: Gallbladder disease TECHNIQUE: 2-D booker scale, color Doppler ultrasound of the abdomen. COMPARISON: No priors available. FINDINGS: Visualized portions of the pancreas, aorta, and IVC are withinnormal limits. Hepatic steatosis. No focal liver lesions. Normal directional flow within the main portal vein. Distended gallbladder with cholelithiasis. Mild gallbladder wallthickening. Sonographic Red sign is negative. No biliary duct dilatation. Common bile duct measures 4 mm. Right kidney measures 10.2 cm in length. No right hydronephrosis. IMPRESSION: CHOLELITHIASIS WITH DISTENDED GALLBLADDER AND MILD GALLBLADDER WALLTHICKENING. ALTHOUGH SONOGRAPHIC RED SIGN IS NEGATIVE, FINDINGS MAYREFLECT CHOLECYSTITIS IN THE APPROPRIATE CLINICAL SETTING. NO BILIARY DUCT DILATATION. HEPATIC STEATOSIS. -------- FINAL REPORT -------- Dictated By: STEVEN SCOTT Dictated Date: 01/13/2025 10:04 ET Assigned Physician: STEVEN SCOTT Reviewed and Electronically Signed By: STEVEN SCOTT Signed Date: 01/13/2025 10:06 ET Workstation ID: [id number] Transcribed By: Self Edit Transcribed Date: 01/13/2025 10:04 ET us Antoni Cooper MD [facility] US PROCEDURES Final Res ult * [place] top urine tube (01/13/2025 5:29 AM EDT) Extra Tube Hold for add-ons. 01/13/2025 7:[address] [facility] Comment:Auto resulted. Urine Urine specimen obtained by clean catch procedure / Unknown 01/13/2025 5:29 AM EDT 01/13/2025 5:40 AM EDT Lulu Perez MD LAB URINE ORDERABLES Final Res ult Performing Organization Address [facility]/ZIP Co de Phone Number [facility] [address] [place] [address], [place] [phone] * Thyroid stimulating hormone with reflex to free t4 and free t3 (01/13/2025 5:03 AM EDT) Pathologist [facility] TSH 2.45 0.40 - 4.00 mcIU/mL LAB CHEMISTRY METHOD 01/13/2025 6:43 PM EDT [facility] Blood Venous blood specimen / Unknown Venipuncture / Unknown 01/13/2025 5:03 AM EDT 01/13/2025 5:17 AM EDT Lulu Perez MD LAB BLOOD ORDERABLES Final Res ult Performing Organization Address [facility] [[email or web address]] de Phone Number [facility] [address] [place] [address], [place] [phone] * (ABNORMAL) Hepatitis panel, acute with reflex to confirmation (01/13/2025 5:03 AM EDT) Pathologist [facility] Hepatitis B Surface Ag Negative Negative LAB CHEMISTRY METHOD 01/13/2025 10:41 PM EDT [facility] Hepatitis A Antibody IgM Negative Negative LAB CHEMISTRY METHOD 01/13/2025 10:41 PM EDT [facility] Hep B Core IgM Negative Negative LAB CHEMISTRY METHOD 01/13/2025 10:41 PM EDT [facility] Hepatitis C Antibody Positive(A) Negative LAB CHEMISTRY METHOD 01/13/2025 10:41 PM EDT [facility] Comment:If confirmation of t his positive HCV Ab screening test is needed, please redraw and order HCV Viral Load. Note--> This test may not be added on due to different specimen requirements. Blood Venous blood specimen / Unknown Venipuncture / Unknown 01/13/2025 5:03 AM EDT 01/13/2025 5:17 AM EDT Antoni Cooper MD LAB BLOOD ORDERABLES Final Result Performing Organization Address [facility]/ZIP Co de Phone Number [facility] [address] [place] [address], [place] [phone] * (ABNORMAL) Osmolality (01/13/2025 5:03 AM EDT) Osmolality Oly 309(H) 280 - 300 mOsm/kg LAB CHEMISTRY METHOD 01/13/2025 6:10 AM EDT [facility] Blood Venous blood specimen / Unknown Venipuncture / Unknown 01/13/2025 5:03 AM EDT 01/13/2025 5:17 AM EDT Lulu Perez MD LAB BLOOD ORDERABLES Final Res ult Performing Organization Address [facility] Co de Phone Number [facility] [address] [place] [address], [place] [phone] from Last 3 Months Insurance MEDICARE MEDICAID - [place] Advance Directives * Full Code - Default (Latest Code Status on File) Date Activated Date Inactivated Comments 01/14/2025 1:57 PM 01/27/2025 7:19 PM This is orde r is used when code status has not been discussed with the patient, or code status is otherwise unknown/unconfirmed To update the patient's code status, place a code status order. Do not modify or discontinue any currently active code status orders. Care Teams Stockroom Attendant Relationship Specialty Start Date End Date Krysten Martins MD [address] [place] [address] [address] [place] [address] PCP - General 11/22/23
--- OUTSIDE RECORDS SUMMARY | 2025-03-09 13:53 | XMS_ITS | Encounter Summary ---
[facility] Organization [facility] Address [address] [place] [address] Care Team Providers Care Fountain Pen Turner Name Role Phone Krysten Martins MD Primary Care Provider [phone] Encounter Details Date Type Department Care Team (Late st Contact Info) Description 03/06/2025 Lab Requisition [facility] - Main Lab [address] [place] [address] Dona Ghotra [address] [place] [address] Social History Tobacco Use Types Packs/Day Years [...] of Assessment Author No 01/15/2025 5:56 AM DARRYLT Lara eMndoza RN documented as of this encounter Mental Status * Because of a physical, mental, or emotional condition, do you have serious difficulty concentrating, remembering, or making decisions? (5 years old or older) Answer Entry Date Author No 01/15/2025 5:56 AM DARRYLT Lara Mendoza RN documented in this encounter Plan of Treatment Not on file documented as of this encounter Visit Diagnoses Not on filedocumented in this encounter Care Teams Fountain Pen Turner Relationship Specialty Start Date End Date Krysten Martins MD [address] [place] [id number] PCP - General 11/22/23 documented as of this encounter
--- OUTSIDE RECORDS SUMMARY | 2025-03-09 13:53 | XMS_ITS | Encounter Summary ---
Author Organization [facility] Address [address] [place] [address] Care Team Providers Care Respite Coordinator Name Role Phone Krysten Martins MD Primary Care Provider [phone] Encounter Details Date Type Department Care Team (Late st Contact Info) Description 03/06/2025 Lab Requisition [facility] - Main Lab [address] [place] [address] Dona Ghotra [address] [place] [address] Other tank terminal gauger (current) drug therapy Social History Tobacco Use [...] Procedure Name Priority Date/Time Associated Diagnosis Comments LIPID PANEL WITH REFLEX TO DIRECT LDL Routine 03/06/2025 7:00 AM EDT Other snf (current) drug therapy HEMOGLOBIN A1C Routine 03/06/2025 7:00 AM EDT Other snf (current) drug therapy GLUCOSE, RANDOM Routine 03/06/2025 7:00 AM EDT Other snf (current) drug therapy documented in this encounter Results * (ABNORMAL) Hemoglobin A1c (03/06/2025 7:00 AM EDT) Hemoglobin A1C 14.0(H) <6.5 % LAB CHEMISTRY METHOD 03/06/2025 12:29 PM EDT [facility] Mean Bld Glu Estim. 355 mg/dL LAB CHEMISTRY METHOD 03/06/2025 12:29 PM EDT [facility] Blood Venous blood specimen / Unknown Venipuncture / Unknown 03/06/2025 7:00 AM EDT 03/06/2025 9:35 AM EDT Dona Ghotra LAB BLOOD ORDERABLES Alona l Result [facility] [address] [place] [address], [place] [phone] * (ABNORMAL) Lipid panel with reflex to direct LDL (03/06/2025 7:00 AM EDT) Cholesterol 119 0 - 200 mg/dL LAB CHEMISTRY METHOD 03/06/2025 10:29 AM EDT [facility] Triglycerides 109 0 - 150 mg/dL LAB CHEMISTRY METHOD 03/06/2025 10:29 AM EDT [facility] HDL 32(L) >=40 mg/dL LAB CHEMISTRY METHOD 03/06/2025 10:29 AM EDT [facility] LDL Calculated 65 0 - 100 mg/dL LAB CHEMISTRY METHOD 03/06/2025 10:29 AM EDT [facility] Comment:Estimated LDL Calcul ated using equation: Total cholesterol - HDL cholesterol - (Triglycerides/5) VLDL Cholesterol Romeo 21.8 mg/dL LAB CHEMISTRY METHOD 03/06/2025 10:29 AM EDT [facility] Non HDL Chol. (LDL+VLDL) 87 <145 mg/dL LAB CHEMISTRY METHOD 03/06/2025 10:29 AM EDT [facility] Chol/HDL Ratio 3.7 0.0 - 4.4 LAB CHEMISTRY METHOD 03/06/2025 10:29 AM T [facility] Blood Venous blood specimen / Unknown Venipuncture / Unknown 03/06/2025 7:00 AM EDT 03/06/2025 9:35 AM EDT us Dona Ghotra LAB BLOOD ORDERABLES Alona l Result [facility] [address] [place] [address], [place] [phone] * (ABNORMAL) Glucose, random (03/06/2025 7:00 AM EDT) Glucose 310(H) 70 - 100 mg/dL LAB CHEMISTRY METHOD 03/06/2025 10:30 AM EDT [facility] Blood Venous blood specimen / Unknown Venipuncture / Unknown 03/06/2025 7:00 AM EDT 03/06/2025 9:35 AM EDT us Dona Fuller Otchere LAB BLOOD ORDERABLES Alona l Result [facility] [address] [place] [address], documented in this encounter Visit Diagnoses Diagnosis Other snf (current) drug therapy documented in this encounter Care Teams Respite Coordinator Relationship Specialty Start Date End Date Krysten Martins MD [address] [address] PCP - General 11/22/23 documented as of this encounter
[2025-03-09 14:18] LABS: Anion Gap 17 (12-20); Blood Urea Nitrogen 15 mg/dL (9-16); Calcium 9.5 mg/dL (8.4-10.2); Carbon Dioxide 26 mmol/L (22-29); Chloride 96 mmol/L (96-108); Creatinine Clr Calc Pharmacy 66.6; Estimated Glomerular Filt Rate > 60; Potassium 5.0 mmol/L (3.3-5.1); Sodium 134 mmol/L (135-145)
[2025-03-09 14:50] LABS: Glucose, Whole Blood > 600 mg/dL (60-115)
[2025-03-09 16:45] LABS: Glucose, Whole Blood 218 mg/dL (60-115)
--- NOTE | 2025-03-09 17:34 | PC.NURSE ---
Call placed to [facility] for RN to RN report as Pt is up for d/c. Spoke with JENNI Jorge and report given. Luisito given the opportunity for questions and all questions answered to satisfaction. Pt awaiting ambulance transportation back to [facility].
[2025-03-09 18:42] VITALS: BP 112/53; PULSE 79; RESP 16; TEMP 36.6; O2SAT 96
== END 2025-03-09 18:43 | disposition other institution (70) ==
PROVIDERS: Emergency Provider Student in an Organized Health Care Education/Training Program
DX: E11.65 Type 2 diabetes mellitus with hyperglycemia (principal); R94.31 Abnormal electrocardiogram [ECG] [EKG]; R11.0 Nausea; R79.89 Other specified abnormal findings of blood chemistry; Z79.899 Other long term (current) drug therapy; Z79.4 Long term (current) use of insulin
CPT/HCPCS: 36415; 80048; 82010; 82803; 82947; 85025; 93005; 96361; 96374; 99284; J7120

== ENCOUNTER → 2025-03-09 13:02 | Outpatient (BNV) | payer MEDICARE, MEDICAID, SELFPAY | PROVIDERS: Emergency Provider Student in an Organized Health Care Education/Training Program; Visit Provider Internal Medicine Cardiovascular Disease | DX: R94.31 Abnormal electrocardiogram [ECG] [EKG] (principal); R42 Dizziness and giddiness | CPT/HCPCS: 93010 ==